=== PATIENT | male | born 1965 | race Caucasian/White ===

== ENCOUNTER → 2018-10-09 | Outpatient (CLI) | payer BC ==
[~2018-10-09] MED LIST: None per pt
[2018-10-09 11:02] LABS: BASOPHILS # (AUTO) 0.13 x10^3/uL (0-0.1); BASOPHILS % (AUTO) 1 % (0-1); EOSINOPHILS # (AUTO) 0.07 x10^3/uL (0-0.4); EOSINOPHILS % (AUTO) 1 % (1-7); LYMPHOCYTES # (AUTO) 3.77 x10^3/uL (1-3.4); LYMPHOCYTES % (AUTO) 32 % (22-44); MD NO; MEAN CORPUSCULAR HEMOGLOBIN 29.7 pg (27.5-34.5); MEAN CORPUSCULAR HGB CONC 34.2 g/dL (33.2-36.2); MEAN CORPUSCULAR VOLUME 86.8 fL (81-97); MEAN PLATELET VOLUME 10.9 fL (7.4-10.4); MONOCYTES # (AUTO) 0.38 x10^3/uL (0.2-0.8); MONOCYTES % (AUTO) 3 % (2-9); NEUTROPHILS # (AUTO) 7.59 x10^3/uL (1.8-6.8); NEUTROPHILS % (AUTO) 64 % (42-75); PLATELET COUNT 148 x10^3/uL (130-400); RED BLOOD COUNT 6.22 x10^6/uL (4.38-5.82); RED CELL DISTRIBUTION WIDTH 14.5 % (9.4-14.8)
[2018-10-09 11:15] LABS: INTERNATIONAL NORMALIZED RATIO 0.97 (0.93-1.1); PROTHROMBIN TIME 10.2 Seconds (9.6-11.5)
[2018-10-09 11:18] LABS: ANION GAP 5 mmol/L (5-15); CALCIUM 9.6 mg/dL (8.5-10.1); CHLORIDE 109 mmol/L (98-107)
[2018-10-09 11:19] LABS: CREATININE 1.08 mg/dL (0.7-1.3)
== END | disposition home or self-care (01) ==
LOC: STAR 10:05
PROVIDERS: ATTEND Neurological Surgery
DX: Z01.818 Encounter for other preprocedural examination (principal); M47.27 Other spondylosis with radiculopathy, lumbosacral region
CPT/HCPCS: 36415; 80048; 85025; 85610; 85730

== ENCOUNTER 2018-10-22 06:41 | Day surgery (SDC) | payer BC ==
[~2018-10-22] VITALS: Ht 172.7 cm; Wt 94.2 kg
[2018-10-22] MEDS ORDERED: BACITRACIN 50,000 UNIT ONE (06:57)
[2018-10-22] MEDS ORDERED: BUPIVACAINE/PF-EPI 0.5% 1:200K ONE (06:57)
[2018-10-22] MEDS ORDERED: THROMBIN 5,000 UNIT VIAL TP ONE (06:57)
[2018-10-22] MEDS ORDERED: GABAPENTIN 300 MG CAPSULE PO ONE (07:00)
[2018-10-22] MEDS ORDERED: ACETAMINOPHEN 500 MG TABLET PO ONE (07:00)
[2018-10-22] MEDS ORDERED: LACTATED RINGERS 1,000 ML IV SCH (07:41)
[2018-10-22] MEDS ORDERED: MIDAZOLAM 1 MG/ML, 2ML ONE (10:18)
[2018-10-22] MEDS ORDERED: FENTANYL PF 250 MCG/5ML ONE (10:18)
[2018-10-22] MEDS ORDERED: ROCURONIUM 10MG/ML,5ML ONE (10:21)
[2018-10-22] MEDS ORDERED: CEFAZOLIN 1,000 MG ONE (10:21)
[2018-10-22] MEDS ORDERED: NEOSTIGMINE 1 MG/ML, 10ML ONE (10:21)
[2018-10-22] MEDS ORDERED: GLYCOPYRROLATE 0.2MG/1ML, 5ML ONE (10:21)
[2018-10-22] MEDS ORDERED: PROPOFOL 10 MG/ML, 20ML ONE (10:21)
[2018-10-22] MEDS ORDERED: methylPREDNISolone *ACETATE* 40 MG/ML ONE (10:43)
[2018-10-22] MEDS ORDERED: CLINDAMYCIN 150 MG/ML, 6ML ONE (10:50)
[2018-10-22] MEDS ORDERED: PROMETHAZINE 25 MG/ML, 1ML IV PRN (11:00)
[2018-10-22] MEDS ORDERED: FENTANYL PF 100 MCG/2ML IV PRN (11:00)
[2018-10-22] MEDS ORDERED: PROMETHAZINE 25 MG/ML, 1ML IM PRN ×2 (11:00)
[2018-10-22] MEDS ORDERED: LABETALOL 5MG/ML, 20ML IV PRN (11:00)
[2018-10-22] MEDS ORDERED: PROMETHAZINE 12.5 MG SUPP PR PRN (11:00)
[2018-10-22] MEDS ORDERED: MEPERIDINE/PF 25MG/0.5ML IVPush PRN (11:00)
[2018-10-22] MEDS ORDERED: MORPHINE SULFATE 4 MG/ML, 1ML IVPush PRN (11:00)
[2018-10-22] MEDS ORDERED: ONDANSETRON ODT 8 MG PO PRN (11:00)
[2018-10-22] MEDS ORDERED: PROMETHAZINE 25 MG SUPP PR PRN (11:00)
[2018-10-22] MEDS ORDERED: ONDANSETRON 2MG/ML, 2ML IV PRN (11:00)
[2018-10-22] MEDS ORDERED: hydrALAzine 20 MG/ML, 1ML IV PRN (11:00)
[2018-10-22] MEDS ORDERED: OXYcodone 5 MG/5 ML ORAL.SOL UDC PO PRN (11:00)
[2018-10-22] MEDS ORDERED: HYDROmorphone 2 MG/ML, 1ML IVPush PRN (11:00)
== END 2018-10-22 14:25 | disposition home or self-care (01) ==
LOC: OUT 06:41
PROVIDERS: ATTEND Neurological Surgery
DX: M51.17 Intervertebral disc disorders with radiculopathy, lumbosacral region (principal); M47.27 Other spondylosis with radiculopathy, lumbosacral region; J45.909 Unspecified asthma, uncomplicated; G43.909 Migraine, unspecified, not intractable, without status migrainosus; G47.30 Sleep apnea, unspecified; G47.00 Insomnia, unspecified; F17.210 Nicotine dependence, cigarettes, uncomplicated; Z79.899 Other long term (current) drug therapy; Z88.0 Allergy status to penicillin; Z88.8 Allergy status to other drugs, medicaments and biological substances; Z98.1 Arthrodesis status; Z98.890 Other specified postprocedural states; Z83.3 Family history of diabetes mellitus; Z82.3 Family history of stroke; Z82.49 Family history of ischemic heart disease and other diseases of the circulatory system
CPT/HCPCS: 36415; 63030; 72100; 86850; 86900; J0690; J1030; J2250; J2704; J2710; J3010; J7120

== ENCOUNTER → 2018-11-12 | Outpatient (CLI) | payer BC ==
[~2018-11-12] MED LIST changes: +CYCL-259 PO; +GABA-826 PO; +OXYC1TAB7 PO
[2018-11-12 09:58] LABS: BASOPHILS # (AUTO) 0.04 x10^3/uL (0-0.1); BASOPHILS % (AUTO) 0 % (0-1); EOSINOPHILS # (AUTO) 0.14 x10^3/uL (0-0.4); EOSINOPHILS % (AUTO) 1 % (1-7); LYMPHOCYTES # (AUTO) 4.06 x10^3/uL (1-3.4); LYMPHOCYTES % (AUTO) 34 % (22-44); MD NO; MEAN CORPUSCULAR HEMOGLOBIN 28.7 pg (27.5-34.5); MEAN CORPUSCULAR HGB CONC 32.7 g/dL (33.2-36.2); MEAN CORPUSCULAR VOLUME 87.9 fL (81-97); MEAN PLATELET VOLUME 10.6 fL (7.4-10.4); MONOCYTES # (AUTO) 0.52 x10^3/uL (0.2-0.8); MONOCYTES % (AUTO) 4 % (2-9); NEUTROPHILS # (AUTO) 7.22 x10^3/uL (1.8-6.8); NEUTROPHILS % (AUTO) 60 % (42-75); PLATELET COUNT 159 x10^3/uL (130-400); RED BLOOD COUNT 6.27 x10^6/uL (4.38-5.82); RED CELL DISTRIBUTION WIDTH 14.2 % (9.4-14.8)
[2018-11-12 10:01] LABS: ANION GAP 8 mmol/L (5-15); CALCIUM 9.6 mg/dL (8.5-10.1); CHLORIDE 104 mmol/L (98-107); CREATININE 1.11 mg/dL (0.7-1.3)
== END | disposition home or self-care (01) ==
LOC: STAR 08:54
PROVIDERS: ATTEND Neurological Surgery
DX: Z01.818 Encounter for other preprocedural examination (principal); M47.27 Other spondylosis with radiculopathy, lumbosacral region
CPT/HCPCS: 36415; 80048; 85025

== ENCOUNTER 2019-06-20 09:50 | Inpatient (IN) | payer BC ==
[~2019-06-20] VITALS: Ht 172.7 cm; Wt 95.2 kg
--- NOTE | 2019-06-20 10:30 | NUR ---
THIS IS A 53 YO MALE WHO PRESENTS TO THE ER C/O NAUSEA AND ABD PAIN X 1 WEEK. PT REPORTS A SMALL LOOSE BM THIS MORNING, BUT REPORTS HE HAS NOT EATEN MUCH OVER THE LAST WEEK. PT TENDER UPON PALP TO LLQ AND EPIGASTRIC REGION. PT AO X 4. SKIN PWD. RESP EVEN AND UNLABORED. PT ON CONT BP AND O2 MONITORS. FAMILY AT BEDSIDE. CALL LIGHT WITHIN REACH. WILL CONT TO MONITOR PT.
[2019-06-20 10:57] LABS: BASOPHILS # (AUTO) 0.18 x10^3/uL (0-0.1); BASOPHILS % (AUTO) 1 % (0-1); EOSINOPHILS # (AUTO) 0.16 x10^3/uL (0-0.4); EOSINOPHILS % (AUTO) 1 % (1-7); LYMPHOCYTES # (AUTO) 2.29 x10^3/uL (1-3.4); LYMPHOCYTES % (AUTO) 15 % (22-44); MD NO; MEAN CORPUSCULAR HEMOGLOBIN 28.9 pg (27.5-34.5); MEAN CORPUSCULAR HGB CONC 33.4 g/dL (33.2-36.2); MEAN CORPUSCULAR VOLUME 86.7 fL (81-97); MEAN PLATELET VOLUME 9.1 fL (7.4-10.4); MONOCYTES # (AUTO) 1.09 x10^3/uL (0.2-0.8); MONOCYTES % (AUTO) 7 % (2-9); NEUTROPHILS # (AUTO) 11.58 x10^3/uL (1.8-6.8); NEUTROPHILS % (AUTO) 76 % (42-75); PLATELET COUNT 276 x10^3/uL (130-400); RED BLOOD COUNT 5.21 x10^6/uL (4.38-5.82); RED CELL DISTRIBUTION WIDTH 14.4 % (9.4-14.8)
[2019-06-20] MEDS ORDERED: HYDROmorphone 1 MG/ML, 1ML INJ ONE (10:57)
[2019-06-20] MEDS ORDERED: ONDANSETRON 2MG/ML, 2ML ONE (10:57)
[2019-06-20] MEDS ORDERED: HYDROmorphone 2 MG/ML, 1ML IVPush PRN (11:00)
[2019-06-20] MEDS ORDERED: SODIUM CHLORIDE FLUSH 10ML SYR IVF ONE (11:00)
[2019-06-20] MEDS ORDERED: ONDANSETRON 2MG/ML, 2ML IVPush ONE (11:00)
[2019-06-20] MEDS ORDERED: SODIUM CHLORIDE 0.9% 1,000ML IVBOLUS ONE (11:00)
[2019-06-20 11:09] LABS: ALBUMIN 2.7 g/dL (3.4-5.0); ANION GAP 11 mmol/L (5-15); CALCIUM 8.7 mg/dL (8.5-10.1); CHLORIDE 103 mmol/L (98-107)
[2019-06-20 11:15] LABS: ALANINE AMINOTRANSFERASE 18 U/L (12-78); ALKALINE PHOSPHATASE 92 U/L (45-117); BILIRUBIN,TOTAL 1.5 mg/dL (0.2-1.0); CREATININE 1.13 mg/dL (0.7-1.3); TOTAL PROTEIN 7.1 g/dL (6.4-8.2); TROPONIN I < 0.015 ng/mL (0.000-0.045)
--- NOTE | 2019-06-20 11:18 | NUR ---
PT MEDICATED ORDERED FOR NAUSEA AND EPIGASTRIC AND LLQ ABD PAIN RATED AT 8/10 AND DESCRIBED SHARP/STABBING. PT REPORTS PAIN IS NOW 3/10 AND TOLERABLE. PT APPEARS TO BE RESTING COMFORTABLY ON GURNEY. NAD NOTED AT THIS TIME. FAMILY AT BEDSIDE. PT ON CONT BP AND O2 MONITORS. CALL LIGHT WITHIN REACH. WILL CONT TO MONITOR PT.
--- NOTE | 2019-06-20 12:00 | NUR ---
REPORT RECEIVED FROM HELEN SEN. ASSUMING CARE AT THIS TIME.
--- NOTE | 2019-06-20 12:00 | NUR ---
REPORT TO FRANCY MATHEWS WHO ASSUMED CARE OF PT.
[2019-06-20 12:18] LABS: MICROSCOPIC INDICATED
[2019-06-20 12:32] LABS: CULTURE INDICATED? NO
--- NOTE | 2019-06-20 13:01 | NUR ---
US AT BEDSIDE.
--- NOTE | 2019-06-20 14:00 | NUR ---
ALL RESULTS ARE BACK AT THIS TIME. CHART UP FOR RECHECK.
--- NOTE | 2019-06-20 14:08 | NUR ---
MD AT BEDSIDE TO UPDATE PT ON POC.
[2019-06-20] MEDS ORDERED: SODIUM CHLORIDE 0.9% 1,000 ML IV ONE (14:28)
[2019-06-20] MEDS ORDERED: SODIUM CHLORIDE FLUSH 10ML SYR IVF PRN (14:30)
--- NOTE | 2019-06-20 14:46 | NUR ---
HOSPITALIST AT BEDSIDE. PT RESTING COMFORTABLY ON RLAZARO. BONI. IVF RUNNING PER JUL.
[2019-06-20] MEDS ORDERED: ACETAMINOPHEN 325 MG TABLET PO PRN (15:00)
[2019-06-20] MEDS ORDERED: ONDANSETRON 2MG/ML, 2ML IVPush PRN (15:00)
[2019-06-20] MEDS ORDERED: ONDANSETRON ODT 4 MG PO PRN (15:00)
[2019-06-20] MEDS: LACTATED RINGERS 1,000 ML IV SCH (15:00)
[2019-06-20] MEDS ORDERED: ENOXAPARIN 40 MG/0.4 ML ONE (15:21)
[2019-06-20] MEDS: ENOXAPARIN 40 MG/0.4 ML SQ SCH (15:22)
--- NOTE | 2019-06-20 17:04 | NUR ---
REPORT GIVEN TO LETICIA SEN
[2019-06-20 17:33] VITALS: BP 112/70
[2019-06-20] MEDS: morphine SULFATE 10 MG/ML, 1ML IVPush PRN ×3 (17:50→22:23)
[2019-06-20 19:13] VITALS: BP 100/63
[2019-06-20 20:04] VITALS: BP 93/54
[2019-06-21] MEDS: morphine SULFATE 10 MG/ML, 1ML IVPush PRN ×6 (02:34→19:46)
[2019-06-21] MEDS: LACTATED RINGERS 1,000 ML IV SCH ×4 (02:37→23:54)
[2019-06-21 04:07] LABS: AMPHETAMINE SCREEN, URINE Negative (Negative); BARBITURATE SCREEN, URINE Negative (Negative); BENZODIAZEPINE SCREEN, URINE Negative (Negative); CANNABINOID SCREEN, URINE Negative (Negative); COCAINE SCREEN, URINE Negative (Negative); METHADONE SCREEN, URINE Negative (Negative); OPIATE SCREEN, URINE Positive (Negative)
[2019-06-21 05:07] VITALS: BP 93/60
[2019-06-21 06:17] LABS: BASOPHILS # (AUTO) 0.03 x10^3/uL (0-0.1); BASOPHILS % (AUTO) 0 % (0-1); EOSINOPHILS # (AUTO) 0.14 x10^3/uL (0-0.4); EOSINOPHILS % (AUTO) 1 % (1-7); LYMPHOCYTES # (AUTO) 2.28 x10^3/uL (1-3.4); LYMPHOCYTES % (AUTO) 20 % (22-44); MD NO; MEAN CORPUSCULAR HEMOGLOBIN 28.7 pg (27.5-34.5); MEAN PLATELET VOLUME 9.5 fL (7.4-10.4); MONOCYTES # (AUTO) 0.79 x10^3/uL (0.2-0.8); MONOCYTES % (AUTO) 7 % (2-9); NEUTROPHILS # (AUTO) 8.48 x10^3/uL (1.8-6.8); NEUTROPHILS % (AUTO) 72 % (42-75); PLATELET COUNT 218 x10^3/uL (130-400); RED BLOOD COUNT 4.57 x10^6/uL (4.38-5.82); RED CELL DISTRIBUTION WIDTH 14.5 % (9.4-14.8)
[2019-06-21 06:26] LABS: CHLORIDE 109 mmol/L (98-107)
[2019-06-21 06:37] LABS: ALANINE AMINOTRANSFERASE 16 U/L (12-78); ALBUMIN 2.3 g/dL (3.4-5.0); ALKALINE PHOSPHATASE 71 U/L (45-117); ANION GAP 8 mmol/L (5-15); BILIRUBIN,TOTAL 0.8 mg/dL (0.2-1.0); CALCIUM 8.5 mg/dL (8.5-10.1); CHOL/HDL RATIO 8.3; CHOLESTEROL, TOTAL 141 mg/dL (140-239); CREATININE 0.73 mg/dL (0.7-1.3); HDL CHOL % 12 % (26-37); HDL CHOLESTEROL (DIRECT) 17 mg/dL (40-60); LDL CHOLESTEROL,CALCULATED 99 mg/dL (54-169); LDL/HDL RATIO 5.8 (0.5-3.0); TOTAL PROTEIN 6.1 g/dL (6.4-8.2); TRIGLYCERIDES 126 mg/dL (50-200); VLDL CHOLESTEROL 25 mg/dL (0-25)
[2019-06-21 10:54] VITALS: BP 109/72
[2019-06-21 14:04] VITALS: BP 106/62
[2019-06-21] MEDS: ENOXAPARIN 40 MG/0.4 ML SQ SCH (15:30)
[2019-06-21 19:05] VITALS: BP 120/74
[2019-06-22 00:28] VITALS: BP 100/62
[2019-06-22 05:08] LABS: BASOPHILS # (AUTO) 0.11 x10^3/uL (0-0.1); BASOPHILS % (AUTO) 1 % (0-1); EOSINOPHILS # (AUTO) 0.17 x10^3/uL (0-0.4); EOSINOPHILS % (AUTO) 1 % (1-7); LYMPHOCYTES # (AUTO) 1.88 x10^3/uL (1-3.4); LYMPHOCYTES % (AUTO) 16 % (22-44); MD NO; MEAN CORPUSCULAR HEMOGLOBIN 29.1 pg (27.5-34.5); MEAN CORPUSCULAR HGB CONC 33.5 g/dL (33.2-36.2); MEAN CORPUSCULAR VOLUME 86.8 fL (81-97); MEAN PLATELET VOLUME 8.6 fL (7.4-10.4); MONOCYTES # (AUTO) 0.88 x10^3/uL (0.2-0.8); MONOCYTES % (AUTO) 7 % (2-9); NEUTROPHILS # (AUTO) 8.82 x10^3/uL (1.8-6.8); NEUTROPHILS % (AUTO) 74 % (42-75); PLATELET COUNT 266 x10^3/uL (130-400); RED CELL DISTRIBUTION WIDTH 14.6 % (9.4-14.8)
[2019-06-22 05:19] LABS: ALBUMIN 2.3 g/dL (3.4-5.0); ANION GAP 11 mmol/L (5-15); CHLORIDE 106 mmol/L (98-107)
[2019-06-22 05:23] LABS: ALANINE AMINOTRANSFERASE 23 U/L (12-78); ALKALINE PHOSPHATASE 79 U/L (45-117); CREATININE 0.69 mg/dL (0.7-1.3); TOTAL PROTEIN 5.9 g/dL (6.4-8.2)
[2019-06-22] MEDS: LACTATED RINGERS 1,000 ML IV SCH ×3 (06:43→21:40)
[2019-06-22 07:49] VITALS: BP 108/67
[2019-06-22 14:02] VITALS: BP 144/79
[2019-06-22 14:13] LABS: CLOSTRIDIUM DIFFICILE ANTIGEN NEGATIVE; CLOSTRIDIUM DIFFICILE TOXIN NEGATIVE (Negative)
[2019-06-22] MEDS: ENOXAPARIN 40 MG/0.4 ML SQ SCH (15:30)
[2019-06-22] MEDS ORDERED: LACTATED RINGERS 1,000 ML IV PRN (19:00)
[2019-06-22 19:45] VITALS: BP 123/75
[2019-06-22 19:47] LABS: BASOPHILS # (AUTO) 0.12 x10^3/uL (0-0.1); BASOPHILS % (AUTO) 1 % (0-1); EOSINOPHILS # (AUTO) 0.16 x10^3/uL (0-0.4); EOSINOPHILS % (AUTO) 1 % (1-7); LYMPHOCYTES # (AUTO) 2.13 x10^3/uL (1-3.4); LYMPHOCYTES % (AUTO) 19 % (22-44); MD NO; MEAN CORPUSCULAR HEMOGLOBIN 28.8 pg (27.5-34.5); MEAN CORPUSCULAR HGB CONC 33.4 g/dL (33.2-36.2); MEAN CORPUSCULAR VOLUME 86.2 fL (81-97); MONOCYTES # (AUTO) 0.79 x10^3/uL (0.2-0.8); MONOCYTES % (AUTO) 7 % (2-9); NEUTROPHILS # (AUTO) 8.32 x10^3/uL (1.8-6.8); NEUTROPHILS % (AUTO) 72 % (42-75); PLATELET COUNT 272 x10^3/uL (130-400); RED BLOOD COUNT 4.51 x10^6/uL (4.38-5.82); RED CELL DISTRIBUTION WIDTH 14.2 % (9.4-14.8)
[2019-06-23 02:40] VITALS: BP 130/82
[2019-06-23 05:49] LABS: INTERNATIONAL NORMALIZED RATIO 1.03 (0.93-1.1); PROTHROMBIN TIME 10.9 Seconds (9.6-11.5)
[2019-06-23 05:52] LABS: ALBUMIN 2.5 g/dL (3.4-5.0); ANION GAP 7 mmol/L (5-15); CALCIUM 8.7 mg/dL (8.5-10.1); CHLORIDE 108 mmol/L (98-107)
[2019-06-23 05:56] LABS: ALANINE AMINOTRANSFERASE 45 U/L (12-78); ALKALINE PHOSPHATASE 93 U/L (45-117); BILIRUBIN,TOTAL 0.8 mg/dL (0.2-1.0); CREATININE 0.72 mg/dL (0.7-1.3); TOTAL PROTEIN 6.6 g/dL (6.4-8.2)
[2019-06-23 09:02] VITALS: BP 121/78
[2019-06-23] MEDS: LACTATED RINGERS 1,000 ML IV SCH (10:53)
[2019-06-23] MEDS: MORPHINE SULFATE 4 MG/ML, 1ML IV PRN (11:10)
[2019-06-23 14:21] VITALS: BP 146/67
[2019-06-23] MEDS ORDERED: MIDAZOLAM 1 MG/ML, 2ML ONE (14:54)
[2019-06-23] MEDS ORDERED: PROPOFOL 50 ML ONE (14:54)
[2019-06-23] MEDS ORDERED: EPINEPHRINE 1 MG/ML, 1ML ONE (15:02)
[2019-06-23] MEDS ORDERED: BUPIVACAINE/PF 0.5% ONE (15:02)
[2019-06-23] MEDS ORDERED: FENTANYL PF 250 MCG/5ML ONE (15:31)
[2019-06-23] MEDS ORDERED: CEFAZOLIN 1,000 MG ONE ×2 (15:43→15:45)
[2019-06-23] MEDS ORDERED: ROCURONIUM 10MG/ML,5ML ONE (15:45)
[2019-06-23] MEDS ORDERED: SUCCINYLCHOLINE 20 MG/ML, 10ML ONE (15:45)
[2019-06-23] MEDS ORDERED: ONDANSETRON 2MG/ML, 2ML ONE (15:45)
[2019-06-23] MEDS ORDERED: PROPOFOL 10 MG/ML, 20ML ONE (15:45)
[2019-06-23] MEDS ORDERED: DEXAMETHASONE 4 MG/ML, 1ML ONE (15:45)
[2019-06-23] MEDS ORDERED: EPHEDRINE 50 MG/ML, 1ML IM PRN (16:00)
[2019-06-23] MEDS ORDERED: PROMETHAZINE 25 MG/ML, 1ML IV PRN (16:00)
[2019-06-23] MEDS ORDERED: EPHEDRINE 50 MG/ML, 1ML IVPush PRN (16:00)
[2019-06-23] MEDS ORDERED: ACETAMINOPHEN 325 MG TABLET PO PRN (16:00)
[2019-06-23] MEDS ORDERED: ONDANSETRON 2MG/ML, 2ML IV PRN (16:00)
[2019-06-23] MEDS ORDERED: MEPERIDINE/PF 25MG/ML,1ML IVPush PRN (16:00)
[2019-06-23] MEDS ORDERED: MORPHINE SULFATE 4 MG/ML, 1ML IVPush PRN (16:00)
[2019-06-23] MEDS ORDERED: hydrALAzine 20 MG/ML, 1ML IV PRN (16:00)
[2019-06-23] MEDS ORDERED: METOPROLOL 1 MG/ML, 5ML IV PRN (16:00)
[2019-06-23] MEDS ORDERED: DIAZEPAM 5 MG/ML, 2ML IVPush PRN (16:00)
[2019-06-23] MEDS ORDERED: DIPHENHYDRAMINE 50 MG/ML, 1ML IVPush PRN (16:00)
[2019-06-23] MEDS ORDERED: ONDANSETRON ODT 8 MG PO PRN (16:00)
[2019-06-23] MEDS ORDERED: FENTANYL PF 100 MCG/2ML IV PRN (16:00)
[2019-06-23] MEDS ORDERED: OXYcodone 5 MG/5 ML ORAL.SOL UDC PO PRN (16:00)
[2019-06-23] MEDS ORDERED: OXYcodone 5 MG/5 ML ORAL.SOL UDC ONE (17:42)
[2019-06-23] MEDS ORDERED: MEPERIDINE/PF 25MG/ML,1ML ONE (17:44)
[2019-06-23 18:31] VITALS: BP 122/76
[2019-06-24] MEDS: LACTATED RINGERS 1,000 ML IV SCH ×2 (01:12→13:30)
[2019-06-24] MEDS: MORPHINE SULFATE 4 MG/ML, 1ML IV PRN ×2 (01:18→11:36)
[2019-06-24 01:38] VITALS: BP 127/72
[2019-06-24 04:55] LABS: BASOPHILS # (AUTO) 0.04 x10^3/uL (0-0.1); BASOPHILS % (AUTO) 0 % (0-1); EOSINOPHILS # (AUTO) 0.13 x10^3/uL (0-0.4); EOSINOPHILS % (AUTO) 1 % (1-7); LYMPHOCYTES # (AUTO) 1.84 x10^3/uL (1-3.4); LYMPHOCYTES % (AUTO) 13 % (22-44); MD NO; MEAN CORPUSCULAR HEMOGLOBIN 28.8 pg (27.5-34.5); MEAN CORPUSCULAR VOLUME 87.4 fL (81-97); MEAN PLATELET VOLUME 9.6 fL (7.4-10.4); MONOCYTES # (AUTO) 0.66 x10^3/uL (0.2-0.8); MONOCYTES % (AUTO) 5 % (2-9); NEUTROPHILS # (AUTO) 11.89 x10^3/uL (1.8-6.8); NEUTROPHILS % (AUTO) 82 % (42-75); PLATELET COUNT 288 x10^3/uL (130-400); RED BLOOD COUNT 4.65 x10^6/uL (4.38-5.82); RED CELL DISTRIBUTION WIDTH 14.1 % (9.4-14.8)
[2019-06-24 04:58] LABS: ALBUMIN 2.3 g/dL (3.4-5.0); ANION GAP 6 mmol/L (5-15); CALCIUM 8.5 mg/dL (8.5-10.1); CHLORIDE 106 mmol/L (98-107)
[2019-06-24 05:02] LABS: ALANINE AMINOTRANSFERASE 58 U/L (12-78); ALKALINE PHOSPHATASE 87 U/L (45-117); BILIRUBIN,TOTAL 0.5 mg/dL (0.2-1.0); CREATININE 0.73 mg/dL (0.7-1.3)
[2019-06-24 09:02] VITALS: BP 106/67
[2019-06-24] MEDS ORDERED: OXYC5CAP2 PO (11:59)
[2019-06-24] MEDS ORDERED: FLU VACC QS2019-20 36MOS UP/PF 0.5 ML IM-VACC ONE (13:00)
== END 2019-06-24 14:45 | disposition home or self-care (01) | DRG 417 ==
LOC: ED 13:20 → EDIP 14:45 → 3N 17:22 → DCLOUNGE 06-24 14:33
PROVIDERS: ADMIT Family Medicine; ATTEND Family Medicine
PROC: 0FT44ZZ Resection of Gallbladder, Percutaneous Endoscopic Approach (ICD-10-PCS; principal; 2019-06-23 16:00)
DX: K80.12 Calculus of gallbladder with acute and chronic cholecystitis without obstruction (principal); K85.10 Biliary acute pancreatitis without necrosis or infection; F17.200 Nicotine dependence, unspecified, uncomplicated; G89.29 Other chronic pain; M54.9 Dorsalgia, unspecified; I11.0 Hypertensive heart disease with heart failure; Z82.49 Family history of ischemic heart disease and other diseases of the circulatory system; Z83.3 Family history of diabetes mellitus; Z79.891 Long term (current) use of opiate analgesic; Z88.0 Allergy status to penicillin; Z88.8 Allergy status to other drugs, medicaments and biological substances
CPT/HCPCS: 36415; 96361; 96374; 96375; 99285; S0020; 76700; 80053; 80061; 80307; 81001; 83605; 83690; 84484; 85025; 85610; 85730; 87324; 88304; 90686; 93005; G0378; J0171; J0690; J1100; J1170; J1650; J2250; J2405; J2704; J3010; J0330; J2175; J2270; J7030; J7120

== ENCOUNTER 2019-10-10 11:48 | Inpatient (IN) | payer BC ==
[~2019-10-10] VITALS: Ht 172.7 cm; Wt 78.9 kg
[~2019-10-10 11:48] MED LIST changes: +OXYC5CAP2 PO
[2019-10-10] MEDS ORDERED: SODIUM CHLORIDE FLUSH 10ML SYR IVF ONE ×2 (12:00→14:30)
[2019-10-10 12:28] LABS: BASOPHILS # (AUTO) 0.08 x10^3/uL (0-0.1); BASOPHILS % (AUTO) 1 % (0-1); EOSINOPHILS # (AUTO) 0.35 x10^3/uL (0-0.4); EOSINOPHILS % (AUTO) 2 % (1-7); LYMPHOCYTES # (AUTO) 3.45 x10^3/uL (1-3.4); LYMPHOCYTES % (AUTO) 24 % (22-44); MD NO; MEAN CORPUSCULAR HEMOGLOBIN 28.3 pg (27.5-34.5); MEAN CORPUSCULAR HGB CONC 32.8 g/dL (33.2-36.2); MEAN CORPUSCULAR VOLUME 86.4 fL (81-97); MEAN PLATELET VOLUME 9.1 fL (7.4-10.4); MONOCYTES # (AUTO) 0.73 x10^3/uL (0.2-0.8); MONOCYTES % (AUTO) 5 % (2-9); NEUTROPHILS # (AUTO) 9.79 x10^3/uL (1.8-6.8); NEUTROPHILS % (AUTO) 68 % (42-75); PLATELET COUNT 269 x10^3/uL (130-400); RED BLOOD COUNT 5.71 x10^6/uL (4.38-5.82); RED CELL DISTRIBUTION WIDTH 15.3 % (9.4-14.8)
--- NOTE | 2019-10-10 12:28 | NUR ---
Pt A/O X4, c/o swollen R leg since Friday. Pt states pain worse in posterior calf, difficulty with ambulating. Leg appears red, swollen, and warm. CMS intact. Denies recent travel, or sitting for long periods. Denies HX of blood clots.
[2019-10-10 12:35] LABS: INTERNATIONAL NORMALIZED RATIO 0.91 (0.93-1.1); PROTHROMBIN TIME 9.6 Seconds (9.6-11.5)
[2019-10-10 12:37] LABS: ALBUMIN 3.8 g/dL (3.4-5.0); ANION GAP 7 mmol/L (5-15); CALCIUM 9.5 mg/dL (8.5-10.1); CHLORIDE 109 mmol/L (98-107); CREATININE 0.98 mg/dL (0.7-1.3)
[2019-10-10] MEDS ORDERED: METO50TA4 PO (12:58)
--- NOTE | 2019-10-10 13:00 | NUR ---
US at bedside
--- NOTE | 2019-10-10 13:44 | NUR ---
IMAGING CALLED REGARDING DELAY IN RESULTS. WAITING FOR IMAGES TO SEND.
--- NOTE | 2019-10-10 14:53 | NUR ---
PT TO IMAGING VIA [employer] AT THIS TIME.
[2019-10-10] MEDS ORDERED: OMNIPAQUE 350 MG/ML, 75ML BOTTLE ONE (15:02)
--- NOTE | 2019-10-10 15:40 | NUR ---
REPORT TO FRANCY MATHEWS WHO ASSUMED CARE OF PT. KEN CRAMER AT BEDSIDE FOR RECHECK/EXPLANATION OF POC. PT AO X 4. SKIN PWD, APART FROM RLE WHICH IS ERYTHEMATOUS. RESP EVEN AND UNLABORED. CALL LIGHT WITHIN REACH. WILL CONT TO MONITOR PT.
[2019-10-10] MEDS ORDERED: HEPARIN 5,000 UNITS/ML, 1ML ONE (15:48)
[2019-10-10] MEDS ORDERED: HEPARIN 25,000 UNITS/250ML PMX 250 ML ONE (15:48)
[2019-10-10] MEDS ORDERED: HEPARIN 25,000 UNITS/250ML PMX 250 ML IV PRN (16:00)
[2019-10-10] MEDS ORDERED: HEPARIN 5,000 UNITS/ML, 1ML IV ONE (16:00)
--- NOTE | 2019-10-10 16:09 | NUR ---
Verified heparin bolus and gtt with primary RN.
--- NOTE | 2019-10-10 16:09 | NUR ---
HEPARIN STARTED PER JUL AND VERIFIED WITH DAYDAY SEN. PT RESTING COMFORTABLY ON RLAZARO. BONI. HOSPITALIST AT BEDSIDE.
[2019-10-10] MEDS ORDERED: ONDANSETRON ODT 4 MG PO PRN (16:30)
[2019-10-10] MEDS ORDERED: NICOTINE 14MG/24 HR PATCH.TD24 TD SCH (16:30)
[2019-10-10] MEDS ORDERED: ACETAMINOPHEN 325 MG TABLET PO PRN (16:30)
[2019-10-10] MEDS ORDERED: ONDANSETRON 2MG/ML, 2ML IVPush PRN (16:30)
[2019-10-10 17:54] VITALS: BP 119/74
[2019-10-10] MEDS: SODIUM CHLORIDE 0.9% 1,000 ML IV SCH (18:33)
[2019-10-10 19:22] VITALS: BP 107/71
[2019-10-10] MEDS: HEPARIN 5,000 UNITS/ML, 1ML IV PRN (22:53)
[2019-10-11 00:17] VITALS: BP 109/71
[2019-10-11 05:54] LABS: ANION GAP 7 mmol/L (5-15); CALCIUM 8.4 mg/dL (8.5-10.1); CHLORIDE 111 mmol/L (98-107); CREATININE 0.76 mg/dL (0.7-1.3)
[2019-10-11 05:56] LABS: BASOPHILS # (AUTO) 0.07 x10^3/uL (0-0.1); BASOPHILS % (AUTO) 1 % (0-1); EOSINOPHILS # (AUTO) 0.43 x10^3/uL (0-0.4); EOSINOPHILS % (AUTO) 4 % (1-7); LYMPHOCYTES # (AUTO) 3.32 x10^3/uL (1-3.4); LYMPHOCYTES % (AUTO) 29 % (22-44); MD NO; MEAN CORPUSCULAR HEMOGLOBIN 28.9 pg (27.5-34.5); MEAN CORPUSCULAR HGB CONC 33.7 g/dL (33.2-36.2); MEAN CORPUSCULAR VOLUME 85.7 fL (81-97); MEAN PLATELET VOLUME 8.7 fL (7.4-10.4); MONOCYTES # (AUTO) 0.53 x10^3/uL (0.2-0.8); MONOCYTES % (AUTO) 5 % (2-9); NEUTROPHILS # (AUTO) 7.27 x10^3/uL (1.8-6.8); NEUTROPHILS % (AUTO) 63 % (42-75); PLATELET COUNT 233 x10^3/uL (130-400); RED BLOOD COUNT 4.99 x10^6/uL (4.38-5.82); RED CELL DISTRIBUTION WIDTH 15.3 % (9.4-14.8)
[2019-10-11] MEDS: HEPARIN 5,000 UNITS/ML, 1ML IV PRN (06:00)
[2019-10-11 07:03] VITALS: BP 107/70
[2019-10-11] MEDS: SODIUM CHLORIDE 0.9% 1,000 ML IV SCH (07:40)
[2019-10-11] MEDS ORDERED: APIXABAN 5 MG TABLET PO SCH (11:00)
[2019-10-11 12:41] VITALS: BP 110/70
[2019-10-11] MEDS ORDERED: APIX5TAB PO (13:02)
[2019-10-11] MEDS ORDERED: NICO-486 TD (13:02)
== END 2019-10-11 16:25 | disposition home or self-care (01) | DRG 299 ==
LOC: ED 11:58 → EDIP 16:43 → 4WST 17:54
PROVIDERS: ADMIT Internal Medicine; ATTEND Internal Medicine
DX: I82.411 Acute embolism and thrombosis of right femoral vein (principal); I26.99 Other pulmonary embolism without acute cor pulmonale; M54.9 Dorsalgia, unspecified; F17.210 Nicotine dependence, cigarettes, uncomplicated; G89.29 Other chronic pain; Z82.49 Family history of ischemic heart disease and other diseases of the circulatory system; Z82.5 Family history of asthma and other chronic lower respiratory diseases; Z83.3 Family history of diabetes mellitus; Z90.49 Acquired absence of other specified parts of digestive tract; Z90.89 Acquired absence of other organs; Z88.0 Allergy status to penicillin; Z88.1 Allergy status to other antibiotic agents
CPT/HCPCS: 36415; 71275; 80048; 82040; 83880; 84311; 85025; 85300; 85302; 85303; 85306; 85520; 85610; 85613; 85670; 85705; 85730; 85732; 93005; 99285; G0378; J1644; Q9967; J7030

== ENCOUNTER 2020-01-23 09:24 | Inpatient (IN) | payer BC ==
[~2020-01-23] VITALS: Ht 172.7 cm; Wt 81.6 kg
[~2020-01-23 09:24] MED LIST changes: +APIX5TAB PO; +METO50TA4 PO; +NICO-486 TD
[2020-01-23] MEDS ORDERED: SODIUM CHLORIDE FLUSH 10ML SYR IVF ONE (10:00)
[2020-01-23] MEDS ORDERED: SODIUM CHLORIDE 0.9% 1,000ML IVBOLUS ONE (10:00)
[2020-01-23] MEDS ORDERED: ONDANSETRON 2MG/ML, 2ML IVPush ONE (10:00)
[2020-01-23] MEDS ORDERED: FAMOTIDINE 20 MG/2 ML IV ONE (10:00)
[2020-01-23] MEDS ORDERED: FAMOTIDINE 20 MG/2 ML ONE (10:27)
[2020-01-23] MEDS ORDERED: ONDANSETRON 2MG/ML, 2ML ONE (10:27)
[2020-01-23] MEDS ORDERED: MORPHINE SULFATE 4 MG/ML, 1ML ONE (10:27)
[2020-01-23] MEDS: MORPHINE SULFATE 4 MG/ML, 1ML IVPush PRN ×2 (10:43→19:22)
[2020-01-23 10:49] LABS: ALANINE AMINOTRANSFERASE 23 U/L (12-78); ANION GAP 11 mmol/L (5-15); CALCIUM 9.6 mg/dL (8.5-10.1); CHLORIDE 106 mmol/L (98-107); CREATININE 0.95 mg/dL (0.7-1.3)
[2020-01-23 10:50] LABS: ALKALINE PHOSPHATASE 237 U/L (45-117); BILIRUBIN,TOTAL 1.5 mg/dL (0.2-1.0); TOTAL PROTEIN 7.4 g/dL (6.4-8.2)
--- NOTE | 2020-01-23 10:52 | NUR ---
PT IN [facility]OSPITAL GOWN. IV STARTED, PT MEDICATED PER EMAR. PT C/O OF FEELING COLD. HEATER HOSE PLACED ON PT TO HELP WARM HIM UP. PT AWARE OF CURRENT PLAN. AWAITING CT. LABS HAVE BEEN DRAWN. VSS AT THIS TIME.
[2020-01-23 11:09] LABS: BASOPHILS # (AUTO) 0.05 x10^3/uL (0-0.1); BASOPHILS % (AUTO) 0 % (0-1); EOSINOPHILS # (AUTO) 0.07 x10^3/uL (0-0.4); EOSINOPHILS % (AUTO) 1 % (1-7); LYMPHOCYTES # (AUTO) 2.49 x10^3/uL (1-3.4); LYMPHOCYTES % (AUTO) 19 % (22-44); MD SCAN; MEAN CORPUSCULAR HEMOGLOBIN 27.4 pg (27.5-34.5); MEAN CORPUSCULAR HGB CONC 32.5 g/dL (33.2-36.2); MEAN CORPUSCULAR VOLUME 84.5 fL (81-97); MEAN PLATELET VOLUME 12.3 fL (7.4-10.4); MONOCYTES # (AUTO) 0.92 x10^3/uL (0.2-0.8); MONOCYTES % (AUTO) 7 % (2-9); NEUTROPHILS # (AUTO) 9.53 x10^3/uL (1.8-6.8); NEUTROPHILS % (AUTO) 73 % (42-75); PLATELET COUNT 52 x10^3/uL (130-400); RED CELL DISTRIBUTION WIDTH 14.6 % (9.4-14.8)
--- NOTE | 2020-01-23 12:03 | NUR ---
PT ABLE TO PROVIDE URINE SAMPLE. URINE WALKED TO LAB. PT TO CT AT THIS TIME.
[2020-01-23] MEDS ORDERED: OMNIPAQUE 350 MG/ML, 150 ML BOTTLE ONE (12:08)
[2020-01-23 12:10] LABS: MICROSCOPIC AUTO
[2020-01-23] MEDS ORDERED: OXYC-307 PO (12:55)
[2020-01-23] MEDS ORDERED: APIX5TAB PO (12:55)
--- NOTE | 2020-01-23 13:07 | NUR ---
PATIENT TEARFUL IN ROOM TALKING WITH FAMILY. NO REQUESTS AT THIS TIME. UPDATED PT'S VITALS AND MED LIST.
--- NOTE | 2020-01-23 13:32 | NUR ---
REPORT TO LESLIE SEN.
[2020-01-23] MEDS ORDERED: hydrALAzine 20 MG/ML, 1ML IVPush PRN (14:00)
[2020-01-23] MEDS ORDERED: ONDANSETRON 2MG/ML, 2ML IVPush PRN (14:00)
[2020-01-23] MEDS ORDERED: HYDROcodone/APAP 5/325 TABLET PO PRN (14:00)
[2020-01-23] MEDS ORDERED: LABETALOL 5MG/ML, 20ML IVPush PRN (14:00)
[2020-01-23 14:13] VITALS: BP 111/78
[2020-01-23 14:20] LABS: INTERNATIONAL NORMALIZED RATIO 1.45 (0.93-1.1)
[2020-01-23] MEDS ORDERED: HEPARIN 5,000 UNITS/ML, 1ML IV ONE (14:30)
[2020-01-23] MEDS ORDERED: TETR-17 PO (14:43)
[2020-01-23] MEDS ORDERED: RIVA20TA PO (14:43)
[2020-01-23] MEDS: morphine SULFATE 10 MG/ML, 1ML IVPush PRN (15:12)
[2020-01-23] MEDS: SODIUM CHLORIDE 0.9% 1,000 ML IV SCH (15:35)
[2020-01-23] MEDS ORDERED: OMEP20CA20 PO (15:56)
[2020-01-23] MEDS ORDERED: METR250T18 PO (15:56)
[2020-01-23] MEDS ORDERED: OMNIPAQUE 350 MG/ML, 75ML BOTTLE ONE (17:07)
[2020-01-23 18:47] VITALS: BP 120/76
[2020-01-23] MEDS: HEPARIN 25,000 UNITS/250ML PMX 250 ML IV PRN (19:21)
[2020-01-24] MEDS: morphine SULFATE 10 MG/ML, 1ML IVPush PRN ×6 (00:31→21:27)
[2020-01-24 02:35] LABS: ALANINE AMINOTRANSFERASE 19 U/L (12-78); ALBUMIN 3.4 g/dL (3.4-5.0); ANION GAP 11 mmol/L (5-15); CALCIUM 8.8 mg/dL (8.5-10.1); CHLORIDE 106 mmol/L (98-107); CREATININE 0.79 mg/dL (0.7-1.3)
[2020-01-24 02:37] LABS: ALKALINE PHOSPHATASE 189 U/L (45-117); BILIRUBIN,TOTAL 0.9 mg/dL (0.2-1.0); TOTAL PROTEIN 6.2 g/dL (6.4-8.2)
[2020-01-24 02:57] LABS: BASOPHILS # (AUTO) 0.03 x10^3/uL (0-0.1); BASOPHILS % (AUTO) 0 % (0-1); EOSINOPHILS # (AUTO) 0.05 x10^3/uL (0-0.4); EOSINOPHILS % (AUTO) 0 % (1-7); LYMPHOCYTES # (AUTO) 2.14 x10^3/uL (1-3.4); LYMPHOCYTES % (AUTO) 19 % (22-44); MD SCAN; MEAN CORPUSCULAR HEMOGLOBIN 27.8 pg (27.5-34.5); MEAN CORPUSCULAR HGB CONC 32.8 g/dL (33.2-36.2); MEAN CORPUSCULAR VOLUME 84.6 fL (81-97); MEAN PLATELET VOLUME 12.2 fL (7.4-10.4); MONOCYTES # (AUTO) 0.74 x10^3/uL (0.2-0.8); MONOCYTES % (AUTO) 7 % (2-9); NEUTROPHILS # (AUTO) 8.33 x10^3/uL (1.8-6.8); NEUTROPHILS % (AUTO) 74 % (42-75); PLATELET COUNT 53 x10^3/uL (130-400); RED BLOOD COUNT 5.13 x10^6/uL (4.38-5.82); RED CELL DISTRIBUTION WIDTH 14.5 % (9.4-14.8)
[2020-01-24 03:03] VITALS: BP 121/67
[2020-01-24] MEDS ORDERED: MORPHINE SULFATE 4 MG/ML, 1ML ONE (04:37)
[2020-01-24] MEDS: SODIUM CHLORIDE 0.9% 1,000 ML IV SCH ×2 (06:26→16:18)
[2020-01-24 07:08] VITALS: BP 124/80
[2020-01-24] MEDS: PROMETHAZINE 25 MG/ML, 1ML IM PRN ×4 (08:11→21:28)
[2020-01-24] MEDS: HEPARIN 5,000 UNITS/ML, 1ML IV PRN ×2 (09:56→17:46)
[2020-01-24] MEDS: PANTOPRAZOLE 40 MG IV IVPush SCH ×2 (11:57→21:28)
[2020-01-24 13:13] VITALS: BP 123/77
[2020-01-24 18:53] VITALS: BP 130/79
[2020-01-24] MEDS: HEPARIN 25,000 UNITS/250ML PMX 250 ML IV PRN (19:16)
[2020-01-25 01:33] VITALS: BP 120/78
[2020-01-25] MEDS: SODIUM CHLORIDE 0.9% 1,000 ML IV SCH ×2 (01:40→14:00)
[2020-01-25 04:46] LABS: INTERNATIONAL NORMALIZED RATIO 1.12 (0.93-1.1); PROTHROMBIN TIME 11.5 Seconds (9.6-11.5)
[2020-01-25 04:48] LABS: MEAN CORPUSCULAR HEMOGLOBIN 27.8 pg (27.5-34.5); MEAN CORPUSCULAR HGB CONC 32.7 g/dL (33.2-36.2); MEAN CORPUSCULAR VOLUME 84.9 fL (81-97); PLATELET COUNT 57 x10^3/uL (130-400); RED CELL DISTRIBUTION WIDTH 14.6 % (9.4-14.8)
[2020-01-25 04:55] LABS: ALANINE AMINOTRANSFERASE 20 U/L (12-78); ALBUMIN 3.2 g/dL (3.4-5.0); ANION GAP 9 mmol/L (5-15); CALCIUM 8.8 mg/dL (8.5-10.1); CHLORIDE 109 mmol/L (98-107); CREATININE 0.73 mg/dL (0.7-1.3)
[2020-01-25 04:57] LABS: ALKALINE PHOSPHATASE 164 U/L (45-117); BILIRUBIN,TOTAL 0.6 mg/dL (0.2-1.0); TOTAL PROTEIN 5.7 g/dL (6.4-8.2)
[2020-01-25 05:13] LABS: BASOPHILS # (AUTO) 0.03 x10^3/uL (0-0.1); BASOPHILS % (AUTO) 0 % (0-1); EOSINOPHILS # (AUTO) 0.07 x10^3/uL (0-0.4); EOSINOPHILS % (AUTO) 1 % (1-7); LYMPHOCYTES # (AUTO) 2.41 x10^3/uL (1-3.4); LYMPHOCYTES % (AUTO) 21 % (22-44); MD SCAN; MONOCYTES # (AUTO) 0.85 x10^3/uL (0.2-0.8); MONOCYTES % (AUTO) 7 % (2-9); NEUTROPHILS # (AUTO) 8.36 x10^3/uL (1.8-6.8); NEUTROPHILS % (AUTO) 71 % (42-75)
[2020-01-25 07:35] VITALS: BP 121/75
[2020-01-25] MEDS: PANTOPRAZOLE 40 MG IV IVPush SCH ×2 (08:03→20:01)
[2020-01-25] MEDS: PROMETHAZINE 25 MG/ML, 1ML IM PRN (08:05)
[2020-01-25] MEDS ORDERED: LIDOCAINE 1%, 10ML ONE (08:28)
[2020-01-25] MEDS ORDERED: FLUMAZENIL 0.1 MG/1 ML, 5ML ONE (08:30)
[2020-01-25] MEDS ORDERED: NALOXONE 1 MG/ML, 2ML ONE (08:30)
[2020-01-25] MEDS ORDERED: FENTANYL PF 100 MCG/2ML ONE (08:30)
[2020-01-25] MEDS ORDERED: MIDAZOLAM 1 MG/ML, 5ML ONE (08:30)
[2020-01-25] MEDS: morphine SULFATE 10 MG/ML, 1ML IVPush PRN ×3 (08:37→20:01)
[2020-01-25] MEDS: D5%-0.45% NACL 1,000 ML IV SCH (14:31)
[2020-01-25 14:38] VITALS: BP 118/71
[2020-01-25 19:43] VITALS: BP 117/75
[2020-01-25] MEDS: METOCLOPRAMIDE 5 MG/ML, 2ML IVPush PRN (20:00)
[2020-01-25] MEDS: HEPARIN 5,000 UNITS/ML, 1ML IV PRN (21:22)
[2020-01-26 00:09] VITALS: BP 115/75
[2020-01-26] MEDS: D5%-0.45% NACL 1,000 ML IV SCH ×3 (00:16→19:11)
[2020-01-26] MEDS: METOCLOPRAMIDE 5 MG/ML, 2ML IVPush PRN ×3 (00:21→20:52)
[2020-01-26] MEDS: morphine SULFATE 10 MG/ML, 1ML IVPush PRN ×7 (00:22→20:53)
[2020-01-26] MEDS: HEPARIN 25,000 UNITS/250ML PMX 250 ML IV PRN ×2 (01:53→21:00)
[2020-01-26 04:13] LABS: MEAN CORPUSCULAR HEMOGLOBIN 27.7 pg (27.5-34.5); MEAN CORPUSCULAR HGB CONC 32.5 g/dL (33.2-36.2); MEAN CORPUSCULAR VOLUME 85.2 fL (81-97); RED BLOOD COUNT 4.74 x10^6/uL (4.38-5.82); RED CELL DISTRIBUTION WIDTH 14.3 % (9.4-14.8)
[2020-01-26 05:45] LABS: BASOPHILS # (AUTO) 0.05 x10^3/uL (0-0.1); BASOPHILS % (AUTO) 1 % (0-1); EOSINOPHILS # (AUTO) 0.16 x10^3/uL (0-0.4); EOSINOPHILS % (AUTO) 2 % (1-7); LYMPHOCYTES # (AUTO) 2.15 x10^3/uL (1-3.4); LYMPHOCYTES % (AUTO) 20 % (22-44); MD SCAN; MEAN PLATELET VOLUME 11.9 fL (7.4-10.4); MONOCYTES # (AUTO) 0.82 x10^3/uL (0.2-0.8); MONOCYTES % (AUTO) 8 % (2-9); NEUTROPHILS % (AUTO) 70 % (42-75); PLATELET COUNT 55 x10^3/uL (130-400)
[2020-01-26] MEDS: SODIUM CHLORIDE 0.9% 1,000 ML IV SCH (07:54)
[2020-01-26 08:03] VITALS: BP 117/75
[2020-01-26] MEDS: PANTOPRAZOLE 40 MG IV IVPush SCH ×2 (09:59→20:46)
[2020-01-26] MEDS ORDERED: LORazepam 2 MG/ML, 1ML IVPush PRN (10:00)
[2020-01-26] MEDS ORDERED: OMNIPAQUE 350 MG/ML, 100ML BOTTLE ONE (12:07)
[2020-01-26 15:40] VITALS: BP 116/75
[2020-01-26 19:08] VITALS: BP 117/72
[2020-01-27 01:12] VITALS: BP 113/71
[2020-01-27] MEDS: morphine SULFATE 10 MG/ML, 1ML IVPush PRN ×5 (01:28→20:48)
[2020-01-27] MEDS: D5%-0.45% NACL 1,000 ML IV SCH ×2 (05:25→15:32)
[2020-01-27] MEDS: HEPARIN 5,000 UNITS/ML, 1ML IV PRN (05:40)
[2020-01-27 07:12] VITALS: BP 110/74
[2020-01-27] MEDS: PANTOPRAZOLE 40 MG IV IVPush SCH ×2 (09:31→20:48)
[2020-01-27 12:17] LABS: D-DIMER 2.2 ug/mlFEU (0.00-0.52)
[2020-01-27 12:21] LABS: C-REACTIVE PROTEIN, QUANT 7.1 mg/dL (0.02-0.49)
[2020-01-27 13:07] LABS: HCT (SEDRATE) 41.7 % (39.2-51.8)
[2020-01-27 13:16] VITALS: BP 114/74
[2020-01-27] MEDS: HEPARIN 25,000 UNITS/250ML PMX 250 ML IV PRN (13:58)
[2020-01-27 18:29] VITALS: BP 118/74
[2020-01-28] VITALS (8 sets, daily range): BP systolic 100–130; BP diastolic 64–86
[2020-01-28] MEDS: morphine SULFATE 10 MG/ML, 1ML IVPush PRN ×3 (00:23→06:58)
[2020-01-28] MEDS ORDERED: MORPHINE SULFATE 4 MG/ML, 1ML ONE ×2 (04:02→06:55)
[2020-01-28] MEDS: D5%-0.45% NACL 1,000 ML IV SCH ×2 (04:05→15:53)
[2020-01-28] MEDS: PANTOPRAZOLE 40 MG IV IVPush SCH ×2 (07:47→21:53)
[2020-01-28] MEDS ORDERED: CHLORHEXIDINE 15 ML UDC MM ONE (08:00)
[2020-01-28] MEDS ORDERED: CHLORHEXIDINE 15 ML UDC ONE (08:02)
[2020-01-28 08:15] LABS: MEAN CORPUSCULAR HEMOGLOBIN 27.3 pg (27.5-34.5); MEAN CORPUSCULAR HGB CONC 31.7 g/dL (33.2-36.2); MEAN PLATELET VOLUME 9.7 fL (7.4-10.4); RED BLOOD COUNT 4.59 x10^6/uL (4.38-5.82); RED CELL DISTRIBUTION WIDTH 14.6 % (9.4-14.8)
[2020-01-28 08:19] LABS: PLATELET COUNT 43 x10^3/uL (130-400)
[2020-01-28 08:34] LABS: BASOPHILS # (AUTO) 0.05 x10^3/uL (0-0.1); BASOPHILS % (AUTO) 1 % (0-1); EOSINOPHILS # (AUTO) 0.12 x10^3/uL (0-0.4); EOSINOPHILS % (AUTO) 2 % (1-7); LYMPHOCYTES # (AUTO) 1.29 x10^3/uL (1-3.4); LYMPHOCYTES % (AUTO) 17 % (22-44); MD SCAN; MONOCYTES # (AUTO) 0.75 x10^3/uL (0.2-0.8); MONOCYTES % (AUTO) 10 % (2-9); NEUTROPHILS # (AUTO) 5.46 x10^3/uL (1.8-6.8); NEUTROPHILS % (AUTO) 71 % (42-75)
[2020-01-28] MEDS ORDERED: MIDAZOLAM 1 MG/ML, 2ML ONE (09:20)
[2020-01-28] MEDS ORDERED: FENTANYL PF 250 MCG/5ML ONE (09:20)
[2020-01-28] MEDS ORDERED: CEFOTETAN PMX ONE (09:51)
[2020-01-28] MEDS ORDERED: SUGAMMADEX 200 MG/2 ML IVPush ONE (09:51)
[2020-01-28] MEDS ORDERED: DEXAMETHASONE 4 MG/ML, 1ML ONE (09:51)
[2020-01-28] MEDS ORDERED: ROCURONIUM 10MG/ML,5ML ONE (09:51)
[2020-01-28] MEDS ORDERED: PROPOFOL 10 MG/ML, 20ML ONE (09:51)
[2020-01-28] MEDS ORDERED: ONDANSETRON 2MG/ML, 2ML ONE (09:51)
[2020-01-28] MEDS ORDERED: MIDAZOLAM 1 MG/ML, 2ML IV PRN (10:30)
[2020-01-28] MEDS ORDERED: FENTANYL PF 100 MCG/2ML IV PRN (10:30)
[2020-01-28] MEDS ORDERED: MEPERIDINE/PF 25MG/0.5ML IVPush PRN (10:30)
[2020-01-28] MEDS ORDERED: LABETALOL 5MG/ML, 20ML IV PRN (10:30)
[2020-01-28] MEDS ORDERED: EPHEDRINE 50 MG/ML, 1ML IVPush PRN (10:30)
[2020-01-28] MEDS ORDERED: ONDANSETRON 2MG/ML, 2ML IVPush PRN (10:30)
[2020-01-28] MEDS ORDERED: PROMETHAZINE 25 MG/ML, 1ML IVPush PRN (10:30)
[2020-01-28] MEDS ORDERED: OXYcodone 5 MG/5 ML ORAL.SOL UDC PO PRN (10:30)
[2020-01-28] MEDS ORDERED: ALBUTEROL SULFATE 2.5 MG/3 ML NPPB PRN (10:30)
[2020-01-28] MEDS ORDERED: PROMETHAZINE 12.5 MG SUPP PR PRN (10:30)
[2020-01-28] MEDS ORDERED: DIAZEPAM 5 MG/ML, 2ML IVPush PRN (10:30)
[2020-01-28] MEDS ORDERED: hydrALAzine 20 MG/ML, 1ML IV PRN (10:30)
[2020-01-28] MEDS ORDERED: HYDROmorphone 1 MG/ML, 1ML INJ IVPush PRN (10:30)
[2020-01-28] MEDS ORDERED: DIPHENHYDRAMINE 50 MG/ML, 1ML IVPush PRN ×2 (10:30)
[2020-01-28] MEDS ORDERED: BUPIVACAINE/PF-EPI 0.25% 1:200K ONE (11:02)
[2020-01-28] MEDS ORDERED: [UNRECOGNIZED DRUG - REMARK] MC PRN (13:30)
[2020-01-28] MEDS: MORPHINE SULFATE 4 MG/ML, 1ML IVPush PRN ×3 (15:59→21:53)
[2020-01-29 00:21] VITALS: BP 111/73
[2020-01-29] MEDS: D5%-0.45% NACL 1,000 ML IV SCH ×3 (00:55→21:17)
[2020-01-29] MEDS: MORPHINE SULFATE 4 MG/ML, 1ML IVPush PRN ×6 (01:51→21:18)
[2020-01-29 05:34] LABS: ALANINE AMINOTRANSFERASE 18 U/L (12-78); ALBUMIN 2.5 g/dL (3.4-5.0); ANION GAP 6 mmol/L (5-15); CALCIUM 8.2 mg/dL (8.5-10.1); CHLORIDE 104 mmol/L (98-107); CREATININE 1.48 mg/dL (0.7-1.3)
[2020-01-29 05:37] LABS: ALKALINE PHOSPHATASE 121 U/L (45-117); TOTAL PROTEIN 5.1 g/dL (6.4-8.2)
[2020-01-29 06:32] LABS: MEAN CORPUSCULAR HEMOGLOBIN 28.2 pg (27.5-34.5); MEAN CORPUSCULAR HGB CONC 33.4 g/dL (33.2-36.2); MEAN CORPUSCULAR VOLUME 84.4 fL (81-97); MEAN PLATELET VOLUME 9.9 fL (7.4-10.4); RED BLOOD COUNT 4.01 x10^6/uL (4.38-5.82)
[2020-01-29 06:34] LABS: PLATELET COUNT 48 x10^3/uL (130-400)
[2020-01-29 06:36] LABS: BASOPHILS # (AUTO) 0.01 x10^3/uL (0-0.1); BASOPHILS % (AUTO) 0 % (0-1); EOSINOPHILS % (AUTO) 0 % (1-7); LYMPHOCYTES % (AUTO) 8 % (22-44); MD SCAN; MONOCYTES # (AUTO) 1.39 x10^3/uL (0.2-0.8); MONOCYTES % (AUTO) 10 % (2-9); NEUTROPHILS % (AUTO) 83 % (42-75)
[2020-01-29 07:51] VITALS: BP 106/67
[2020-01-29 09:33] LABS: BASOPHILS # (AUTO) 0.09 x10^3/uL (0-0.1); BASOPHILS % (AUTO) 1 % (0-1); EOSINOPHILS % (AUTO) 0 % (1-7); LYMPHOCYTES # (AUTO) 1.57 x10^3/uL (1-3.4); LYMPHOCYTES % (AUTO) 9 % (22-44); MD SCAN; MEAN CORPUSCULAR HGB CONC 32.9 g/dL (33.2-36.2); MEAN CORPUSCULAR VOLUME 85.1 fL (81-97); MONOCYTES # (AUTO) 1.36 x10^3/uL (0.2-0.8); MONOCYTES % (AUTO) 8 % (2-9); NEUTROPHILS # (AUTO) 13.81 x10^3/uL (1.8-6.8); NEUTROPHILS % (AUTO) 82 % (42-75); PLATELET COUNT 56 x10^3/uL (130-400); RED BLOOD COUNT 4.27 x10^6/uL (4.38-5.82); RED CELL DISTRIBUTION WIDTH 14.8 % (9.4-14.8)
[2020-01-29] MEDS: PANTOPRAZOLE 40 MG IV IVPush SCH (09:55)
[2020-01-29 12:52] VITALS: BP 115/73
[2020-01-29 19:41] VITALS: BP 119/74
[2020-01-30 02:03] VITALS: BP 121/68
[2020-01-30] MEDS: MORPHINE SULFATE 4 MG/ML, 1ML IVPush PRN ×9 (03:11→21:48)
[2020-01-30] MEDS: D5%-0.45% NACL 1,000 ML IV SCH ×2 (05:05→18:27)
[2020-01-30 06:08] LABS: ALBUMIN 2.5 g/dL (3.4-5.0); ANION GAP 9 mmol/L (5-15); CALCIUM 7.7 mg/dL (8.5-10.1); CHLORIDE 105 mmol/L (98-107)
[2020-01-30 06:11] LABS: ALANINE AMINOTRANSFERASE 18 U/L (12-78); ALKALINE PHOSPHATASE 110 U/L (45-117); BILIRUBIN,TOTAL 3.7 mg/dL (0.2-1.0); CREATININE 1.05 mg/dL (0.7-1.3)
[2020-01-30 07:00] LABS: MEAN CORPUSCULAR HEMOGLOBIN 28.3 pg (27.5-34.5); MEAN CORPUSCULAR HGB CONC 33.7 g/dL (33.2-36.2); MEAN CORPUSCULAR VOLUME 83.9 fL (81-97); MEAN PLATELET VOLUME 9.2 fL (7.4-10.4); RED BLOOD COUNT 3.72 x10^6/uL (4.38-5.82); RED CELL DISTRIBUTION WIDTH 15.1 % (9.4-14.8)
[2020-01-30 07:01] LABS: PLATELET COUNT 48 x10^3/uL (130-400)
[2020-01-30 07:02] LABS: BASOPHILS # (AUTO) 0.04 x10^3/uL (0-0.1); BASOPHILS % (AUTO) 0 % (0-1); EOSINOPHILS # (AUTO) 0.36 x10^3/uL (0-0.4); EOSINOPHILS % (AUTO) 3 % (1-7); LYMPHOCYTES # (AUTO) 2.08 x10^3/uL (1-3.4); LYMPHOCYTES % (AUTO) 14 % (22-44); MD MORPH REVIEW ONLY; MONOCYTES # (AUTO) 1.35 x10^3/uL (0.2-0.8); MONOCYTES % (AUTO) 9 % (2-9); NEUTROPHILS # (AUTO) 10.72 x10^3/uL (1.8-6.8); NEUTROPHILS % (AUTO) 74 % (42-75)
[2020-01-30 07:04] LABS: ANISOCYTOSIS 1+
[2020-01-30 07:05] LABS: POLYCHROMASIA 1+; SCHISTOCYTES 1+
[2020-01-30 07:06] LABS: <PLATELET ESTIMATE> DECREASED; LARGE PLATELETS 1+
[2020-01-30 08:23] VITALS: BP 111/69
[2020-01-30] MEDS: PANTOPRAZOLE 40 MG IV IVPush SCH ×2 (09:00→09:25)
[2020-01-30] MEDS: PANTOPRAZOLE 40MG TABLET PO SCH (09:47)
[2020-01-30] MEDS ORDERED: POTASSIUM CHLORIDE 40 MEQ in SODIUM CHLORIDE 0.9% 500 ML IV ONE (10:00)
[2020-01-30 10:26] LABS: BASOPHILS # (AUTO) 0.01 x10^3/uL (0-0.1); BASOPHILS % (AUTO) 0 % (0-1); EOSINOPHILS # (AUTO) 0.39 x10^3/uL (0-0.4); EOSINOPHILS % (AUTO) 2 % (1-7); LYMPHOCYTES # (AUTO) 1.88 x10^3/uL (1-3.4); LYMPHOCYTES % (AUTO) 12 % (22-44); MD SCAN; MEAN CORPUSCULAR HEMOGLOBIN 28.3 pg (27.5-34.5); MEAN CORPUSCULAR HGB CONC 33.4 g/dL (33.2-36.2); MEAN CORPUSCULAR VOLUME 84.8 fL (81-97); MONOCYTES # (AUTO) 1.36 x10^3/uL (0.2-0.8); MONOCYTES % (AUTO) 9 % (2-9); NEUTROPHILS # (AUTO) 12.42 x10^3/uL (1.8-6.8); NEUTROPHILS % (AUTO) 77 % (42-75); RED BLOOD COUNT 3.85 x10^6/uL (4.38-5.82); RED CELL DISTRIBUTION WIDTH 15.2 % (9.4-14.8)
[2020-01-30 10:30] LABS: PLATELET COUNT 46 x10^3/uL (130-400)
[2020-01-30 15:33] VITALS: BP 115/76
[2020-01-30] MEDS: POTASSIUM CHLORIDE 20 MEQ PACKET PO SCH ×2 (15:47→21:45)
[2020-01-30] MEDS: HEPARIN 5,000 UNITS/ML, 1ML IV PRN ×2 (16:07→22:40)
[2020-01-30] MEDS: HEPARIN 25,000 UNITS/250ML PMX 250 ML IV PRN (16:07)
[2020-01-30] MEDS ORDERED: POTASSIUM CHLORIDE 20 MEQ PACKET PO SCH (17:00)
[2020-01-30 18:18] VITALS: BP 109/72
[2020-01-31] MEDS: MORPHINE SULFATE 4 MG/ML, 1ML IVPush PRN ×5 (00:16→09:37)
[2020-01-31 01:00] VITALS: BP 107/70
[2020-01-31 05:35] LABS: ALBUMIN 2.3 g/dL (3.4-5.0); ANION GAP 6 mmol/L (5-15); CALCIUM 8.2 mg/dL (8.5-10.1); CHLORIDE 105 mmol/L (98-107)
[2020-01-31 05:39] LABS: ALANINE AMINOTRANSFERASE 15 U/L (12-78); ALKALINE PHOSPHATASE 114 U/L (45-117); BILIRUBIN,TOTAL 2.4 mg/dL (0.2-1.0); CREATININE 0.91 mg/dL (0.7-1.3); TOTAL PROTEIN 5.1 g/dL (6.4-8.2)
[2020-01-31] MEDS: HEPARIN 5,000 UNITS/ML, 1ML IV PRN (05:46)
[2020-01-31] MEDS: PANTOPRAZOLE 40MG TABLET PO SCH (05:46)
[2020-01-31 06:10] VITALS: BP 104/66
[2020-01-31 06:23] LABS: MEAN CORPUSCULAR HEMOGLOBIN 28.4 pg (27.5-34.5); MEAN CORPUSCULAR HGB CONC 33.7 g/dL (33.2-36.2); MEAN CORPUSCULAR VOLUME 84.3 fL (81-97); MEAN PLATELET VOLUME 11.1 fL (7.4-10.4); RED CELL DISTRIBUTION WIDTH 15.4 % (9.4-14.8)
[2020-01-31 06:24] LABS: ANISOCYTOSIS 1+; BASOPHILS # (AUTO) 0.01 x10^3/uL (0-0.1); BASOPHILS % (AUTO) 0 % (0-1); EOSINOPHILS # (AUTO) 0.01 x10^3/uL (0-0.4); EOSINOPHILS % (AUTO) 0 % (1-7); LYMPHOCYTES # (AUTO) 1.79 x10^3/uL (1-3.4); LYMPHOCYTES % (AUTO) 12 % (22-44); MD MORPH REVIEW ONLY; MONOCYTES # (AUTO) 0.76 x10^3/uL (0.2-0.8); MONOCYTES % (AUTO) 5 % (2-9); NEUTROPHILS # (AUTO) 12.05 x10^3/uL (1.8-6.8); NEUTROPHILS % (AUTO) 82 % (42-75); POLYCHROMASIA 1+
[2020-01-31 06:25] LABS: <PLATELET ESTIMATE> DECREASED; LARGE PLATELETS 1+; PLATELET COUNT 39 x10^3/uL (130-400); SCHISTOCYTES 2+
[2020-01-31] MEDS ORDERED: POTASSIUM CHLORIDE 20 MEQ PACKET PO SCH ×2 (09:00→10:00)
[2020-01-31] MEDS ORDERED: ONDA4TAB7 PO (11:31)
[2020-01-31] MEDS ORDERED: PHOS250T3 PO (11:31)
[2020-01-31] MEDS ORDERED: OXYC-302 PO (11:31)
[2020-01-31] MEDS ORDERED: POTA20PA25 PO (11:31)
[2020-01-31] MEDS ORDERED: OXYC-307 PO (14:25)
[2020-01-31] MEDS ORDERED: D5%-0.45% NACL 1,000 ML IV SCH (14:30)
== END 2020-01-31 13:55 | disposition home or self-care (01) | DRG 423 ==
LOC: ED 10:29 → EDIP 12:55 → 4NE 14:14 → 4NW 19:44
PROVIDERS: ADMIT Hospitalist; ATTEND Internal Medicine
PROC: 0FB03ZX Excision of Liver, Percutaneous Approach, Diagnostic (ICD-10-PCS; 2020-01-25)
PROC: 0D160ZA Bypass Stomach to Jejunum, Open Approach (ICD-10-PCS; 2020-01-28)
PROC: 0W9G3ZZ Drainage of Peritoneal Cavity, Percutaneous Approach (ICD-10-PCS; 2020-01-28)
PROC: 30233N1 Transfusion of Nonautologous Red Blood Cells into Peripheral Vein, Percutaneous Approach (ICD-10-PCS; 2020-01-28)
PROC: 0DBU0ZZ Excision of Omentum, Open Approach (ICD-10-PCS; principal; 2020-01-28 09:30)
DX: C25.9 Malignant neoplasm of pancreas, unspecified (principal); E43 Unspecified severe protein-calorie malnutrition; C78.7 Secondary malignant neoplasm of liver and intrahepatic bile duct; C79.51 Secondary malignant neoplasm of bone; E87.2 Acidosis; K31.1 Adult hypertrophic pyloric stenosis; K31.5 Obstruction of duodenum; R18.8 Other ascites; D64.9 Anemia, unspecified; D69.6 Thrombocytopenia, unspecified; D72.829 Elevated white blood cell count, unspecified; D73.5 Infarction of spleen; F17.210 Nicotine dependence, cigarettes, uncomplicated; K42.9 Umbilical hernia without obstruction or gangrene; G89.29 Other chronic pain; M54.5 Low back pain; R91.1 Solitary pulmonary nodule; Z68.27 Body mass index [BMI] 27.0-27.9, adult; Z86.711 Personal history of pulmonary embolism; Z86.718 Personal history of other venous thrombosis and embolism; Z90.49 Acquired absence of other specified parts of digestive tract; Z03.818 Encounter for observation for suspected exposure to other biological agents ruled out
CPT/HCPCS: 36415; 74018; 74340; 85613; 85732; 87806; 96374; 96375; 99285; J3490; 36430; 47000; 71260; 74177; 74181; 76942; 80053; 81001; 82378; 82607; 83605; 83615; 83690; 83735; 84100; 85025; 85379; 85384; 85520; 85610; 85651; 85730; 86038; 86140; 86301; 86430; 86431; 86705; 86706; 86803; 86850; 86900; 86923; 87086; 87340; 87635; 88307; 88333; 99156; 99157; G0378; J1100; J1644; J2250; J2405; J2550; J2704; J3010; J3480; Q9967; C9113; G0475; J2060; J2270; J2310; J2765; J7030; J7040; P9035

== ENCOUNTER 2020-02-04 09:22 | Inpatient (IN) | payer BC ==
[~2020-02-04] VITALS: Ht 172.7 cm; Wt 87.1 kg
[~2020-02-04 09:22] MED LIST changes: +METR250T18 PO; +OMEP20CA20 PO; +ONDA4TAB7 PO; +OXYC-302 PO; +OXYC-307 PO; +PHOS250T3 PO; +POTA20PA25 PO; +RIVA20TA PO; +TETR-17 PO
[2020-02-04] MEDS ORDERED: ONDANSETRON 2MG/ML, 2ML IVPush ONE (10:00)
[2020-02-04] MEDS ORDERED: SODIUM CHLORIDE FLUSH 10ML SYR IVF ONE (10:00)
[2020-02-04] MEDS ORDERED: ONDANSETRON 2MG/ML, 2ML ONE (10:19)
[2020-02-04] MEDS ORDERED: HYDROmorphone 1 MG/ML, 1ML INJ ONE ×2 (10:19→11:05)
[2020-02-04] MEDS: HYDROmorphone 2 MG/ML, 1ML IVPush PRN ×2 (10:26→11:06)
--- NOTE | 2020-02-04 10:46 | NUR ---
IV STARTED, ORDERED MEDS GIVEN FOR PAIN. PT PLACED ON VITALS MONITORS. WILL CONTINUE TO MONITOR.
[2020-02-04 10:53] LABS: ALBUMIN 2.6 g/dL (3.4-5.0); ANION GAP 9 mmol/L (5-15); CALCIUM 8.5 mg/dL (8.5-10.1); CHLORIDE 104 mmol/L (98-107); CREATININE 0.85 mg/dL (0.7-1.3)
[2020-02-04] MEDS ORDERED: APIX5TAB PO (11:10)
--- NOTE | 2020-02-04 11:11 | NUR ---
PT MEDICATED FOR PAIN PER EMAR. VSS AT THIS TIME. WILL CONTINUE TO MONITOR.
[2020-02-04 11:14] LABS: INTERNATIONAL NORMALIZED RATIO 1.24 (0.93-1.1); PROTHROMBIN TIME 12.8 Seconds (9.6-11.5)
--- NOTE | 2020-02-04 11:36 | NUR ---
CALLED [facility] TO SEE IF COMING TO GET PT FOR VASC US. NO ANSWER. WILL TRY AGAIN LATER.
[2020-02-04 11:39] LABS: MEAN CORPUSCULAR HGB CONC 33.4 g/dL (33.2-36.2); MEAN CORPUSCULAR VOLUME 86.9 fL (81-97); MEAN PLATELET VOLUME 11.9 fL (7.4-10.4); PLATELET COUNT 104 x10^3/uL (130-400); RED BLOOD COUNT 3.15 x10^6/uL (4.38-5.82); RED CELL DISTRIBUTION WIDTH 17.2 % (9.4-14.8)
[2020-02-04 11:40] LABS: MD YES
[2020-02-04 11:41] LABS: BAND#(MANUAL) 0.77 x10^3/uL; BANDS%(MANUAL) 4 % (0-7); EOS#(MANUAL) 0.38 x10^3/uL (0.0-0.4); EOS% (MANUAL) 2 % (1-7); LYMPH#(MANUAL) 2.11 x10^3/uL (1-3.4); LYMPHS% (MANUAL) 11 % (22-44); MONOS#(MANUAL) 1.73 x10^3/uL (0.3-2.7); MONOS% (MANUAL) 9 % (2-9); MYELOCYTES# (MANUAL) 0.19 x10^3/uL (0-0); MYELOCYTES% (MANUAL) 1 % (0-0); SEG#(MANUAL) 14.02 x10^3/uL (1.8-6.8); SEGS% (MANUAL) 73 % (42-75)
[2020-02-04 11:42] LABS: ANISOCYTOSIS 1+; POLYCHROMASIA 1+; SCHISTOCYTES 1+
[2020-02-04 11:43] LABS: <PLATELET ESTIMATE> DECREASED; LARGE PLATELETS 1+
[2020-02-04] MEDS ORDERED: AZITHROMYCIN 500 MG in SODIUM CHLORIDE 0.9% 250 ML IVPB ONE (12:00)
[2020-02-04] MEDS ORDERED: CEFTRIAXONE PMX 1GM/50ML 50 ML IVPB ONE (12:00)
[2020-02-04] MEDS ORDERED: CEFTRIAXONE PMX 1GM/50ML 50 ML ONE (12:27)
--- NOTE | 2020-02-04 12:35 | NUR ---
PT DESATING TO 85% ON RA. PT PLACED ON 2L O2 PER N/C. FAMILY REMAINS AT BEDSIDE. NO COMPLAINTS AT THIS TIME FROM PT. BLOOD CULTURES BEING DRAWN.
--- NOTE | 2020-02-04 13:57 | NUR ---
VASCULAR US IN ROOM AT THIS TIME ALONG WITH HOSPITALIST.
--- NOTE | 2020-02-04 14:03 | NUR ---
ORDERED ABX STARTED. VSS, SEE CHARTED.
[2020-02-04 14:24] LABS: ALBUMIN 2.6 g/dL (3.4-5.0); BILIRUBIN, DIRECT 0.7 mg/dL (0.1-0.2)
[2020-02-04] MEDS ORDERED: ONDANSETRON 2MG/ML, 2ML IVPush PRN (14:30)
[2020-02-04] MEDS ORDERED: hydrALAzine 20 MG/ML, 1ML IVPush PRN (14:30)
[2020-02-04] MEDS ORDERED: MELATONIN 5 MG TABLET PO PRN (14:30)
[2020-02-04] MEDS ORDERED: ACETAMINOPHEN 325 MG TABLET PO PRN (14:30)
[2020-02-04] MEDS ORDERED: POLYETHYLENE GLYCOL 17 GM PACKET PO PRN (14:30)
[2020-02-04 14:31] LABS: BILIRUBIN,TOTAL 1.7 mg/dL (0.2-1.0); TOTAL PROTEIN 5.6 g/dL (6.4-8.2)
[2020-02-04 14:34] LABS: D-DIMER (DIC) 26.68 ug/mlFEU (0.00-0.52); PROTIME 12.9 Seconds (9.6-11.5)
--- NOTE | 2020-02-04 15:20 | NUR ---
VASC US AT BEDSIDE
[2020-02-04] MEDS ORDERED: HEPARIN 5,000 UNITS/ML, 1ML IV PRN (15:30)
[2020-02-04] MEDS ORDERED: HEPARIN 5,000 UNITS/ML, 1ML IV ONE (15:30)
[2020-02-04] MEDS ORDERED: HEPARIN 25,000 UNITS/250ML PMX 250 ML IV PRN (15:30)
[2020-02-04 15:44] LABS: HCT (SEDRATE) 25.6 % (39.2-51.8)
[2020-02-04] MEDS ORDERED: HEPARIN 5,000 UNITS/ML, 1ML ONE (15:54)
[2020-02-04] MEDS ORDERED: HEPARIN 25,000 UNITS/250ML PMX 250 ML ONE (15:54)
[2020-02-04] MEDS ORDERED: MORPHINE SULFATE 4 MG/ML, 1ML ONE (17:14)
[2020-02-04] MEDS ORDERED: MORPHINE SULFATE 4 MG/ML, 1ML IVPush ONE (17:30)
--- NOTE | 2020-02-04 17:50 | NUR ---
2 more IV's STARTED. AFTER 2 FAILED ATTEMPTS. WILL START ORDERED MEDS.
[2020-02-04] MEDS: MEROPENEM 1 GM in SODIUM CHLORIDE 0.9% 100 ML IV SCH (18:01)
[2020-02-04] MEDS: LACTATED RINGERS 1,000 ML IV SCH (18:01)
[2020-02-04 19:09] VITALS: BP 121/74
[2020-02-04] MEDS: HYDROmorphone PCA 30 MG/30 ML IV PRN (19:49)
[2020-02-04 20:36] VITALS: BP 121/74
[2020-02-04] MEDS ORDERED: FENTANYL PF 100 MCG/2ML ONE (21:39)
[2020-02-04] MEDS ORDERED: NALOXONE 1 MG/ML, 2ML ONE (21:39)
[2020-02-04] MEDS ORDERED: LIDOCAINE 1%, 10ML ONE (22:10)
[2020-02-04] MEDS ORDERED: FENTANYL PF 100 MCG/2ML IVPush ONE (22:32)
[2020-02-04] MEDS: HEPARIN 25,000 UNITS/250ML PMX 250 ML IV SCH (23:00)
[2020-02-04] MEDS ORDERED: ALTEPLASE 10 MG in SODIUM CHLORIDE 0.9% 90 ML IV SCH (23:00)
[2020-02-04] MEDS: ALTEPLASE 10 MG in SODIUM CHLORIDE 0.9% 90 ML IV SCH (23:06)
[2020-02-05] MEDS: MEROPENEM 1 GM in SODIUM CHLORIDE 0.9% 100 ML IV SCH ×4 (00:34→23:25)
[2020-02-05] MEDS: ALTEPLASE 10 MG in SODIUM CHLORIDE 0.9% 90 ML IV SCH (03:25)
[2020-02-05 04:00] VITALS: BP 98/54
[2020-02-05 05:42] LABS: INTERNATIONAL NORMALIZED RATIO 1.12 (0.93-1.1); PROTHROMBIN TIME 11.6 Seconds (9.6-11.5)
[2020-02-05 05:44] LABS: ANION GAP 8 mmol/L (5-15); CALCIUM 8.1 mg/dL (8.5-10.1); CHLORIDE 105 mmol/L (98-107); CREATININE 0.87 mg/dL (0.7-1.3)
[2020-02-05 05:47] LABS: MEAN CORPUSCULAR HEMOGLOBIN 28.4 pg (27.5-34.5); MEAN CORPUSCULAR HGB CONC 31.8 g/dL (33.2-36.2); MEAN CORPUSCULAR VOLUME 89.1 fL (81-97); MEAN PLATELET VOLUME 10.5 fL (7.4-10.4); PLATELET COUNT 146 x10^3/uL (130-400); RED CELL DISTRIBUTION WIDTH 18.8 % (9.4-14.8)
[2020-02-05 06:28] LABS: MD YES
[2020-02-05 06:30] LABS: ANISOCYTOSIS 1+; BAND#(MANUAL) 0.19 x10^3/uL; BANDS%(MANUAL) 1 % (0-7); EOS#(MANUAL) 0.57 x10^3/uL (0.0-0.4); EOS% (MANUAL) 3 % (1-7); LYMPH#(MANUAL) 2.87 x10^3/uL (1-3.4); LYMPHS% (MANUAL) 15 % (22-44); MONOS#(MANUAL) 1.53 x10^3/uL (0.3-2.7); MONOS% (MANUAL) 8 % (2-9); POLYCHROMASIA 1+; SCHISTOCYTES 1+; SEG#(MANUAL) 13.94 x10^3/uL (1.8-6.8); SEGS% (MANUAL) 73 % (42-75)
[2020-02-05 06:31] LABS: <PLATELET ESTIMATE> ADEQUATE; LARGE PLATELETS 1+
[2020-02-05] MEDS: PANTOPRAZOLE 40 MG IV IVPush SCH (08:33)
[2020-02-05] MEDS: LACTATED RINGERS 1,000 ML IV SCH ×2 (08:33→23:07)
[2020-02-05 08:59] LABS: MICROSCOPIC INDICATED
[2020-02-05 11:47] LABS: MEAN CORPUSCULAR HEMOGLOBIN 28.5 pg (27.5-34.5); MEAN CORPUSCULAR HGB CONC 32.6 g/dL (33.2-36.2); MEAN CORPUSCULAR VOLUME 87.5 fL (81-97); MEAN PLATELET VOLUME 10.8 fL (7.4-10.4); PLATELET COUNT 114 x10^3/uL (130-400); RED CELL DISTRIBUTION WIDTH 18.5 % (9.4-14.8)
[2020-02-05 11:56] LABS: INTERNATIONAL NORMALIZED RATIO 1.13 (0.93-1.1); PROTHROMBIN TIME 11.7 Seconds (9.6-11.5)
[2020-02-05 12:03] LABS: MD YES
[2020-02-05 12:04] LABS: <PLATELET ESTIMATE> DECREASED; ANISOCYTOSIS 1+; BAND#(MANUAL) 0.17 x10^3/uL; BANDS%(MANUAL) 1 % (0-7); LYMPH#(MANUAL) 1.67 x10^3/uL (1-3.4); LYMPHS% (MANUAL) 10 % (22-44); METAMYELOCYTES# (MANUAL) 0.17 x10^3/uL (0-0); METAMYELOCYTES% (MANUAL) 1 % (0-1); MONOS#(MANUAL) 0.84 x10^3/uL (0.3-2.7); MONOS% (MANUAL) 5 % (2-9); POLYCHROMASIA 1+; SCHISTOCYTES 1+; SEG#(MANUAL) 13.86 x10^3/uL (1.8-6.8); SEGS% (MANUAL) 83 % (42-75)
[2020-02-05 12:05] LABS: LARGE PLATELETS 1+
[2020-02-05] MEDS ORDERED: LIDOCAINE 1%, 10ML ONE (14:14)
[2020-02-05] MEDS ORDERED: NALOXONE 1 MG/ML, 2ML ONE (14:18)
[2020-02-05] MEDS ORDERED: FENTANYL PF 100 MCG/2ML ONE (14:18)
[2020-02-05 16:27] LABS: MEAN CORPUSCULAR HEMOGLOBIN 28.6 pg (27.5-34.5); MEAN CORPUSCULAR HGB CONC 32.7 g/dL (33.2-36.2); MEAN CORPUSCULAR VOLUME 87.7 fL (81-97); MEAN PLATELET VOLUME 10.9 fL (7.4-10.4); PLATELET COUNT 115 x10^3/uL (130-400); RED BLOOD COUNT 3.03 x10^6/uL (4.38-5.82); RED CELL DISTRIBUTION WIDTH 18.5 % (9.4-14.8)
[2020-02-05 16:28] LABS: BASOPHILS # (AUTO) 0.02 x10^3/uL (0-0.1); BASOPHILS % (AUTO) 0 % (0-1); EOSINOPHILS # (AUTO) 0.33 x10^3/uL (0-0.4); EOSINOPHILS % (AUTO) 2 % (1-7); LYMPHOCYTES # (AUTO) 2.01 x10^3/uL (1-3.4); LYMPHOCYTES % (AUTO) 14 % (22-44); MD NO; MONOCYTES % (AUTO) 8 % (2-9); NEUTROPHILS # (AUTO) 10.88 x10^3/uL (1.8-6.8); NEUTROPHILS % (AUTO) 76 % (42-75)
[2020-02-05 16:37] LABS: INTERNATIONAL NORMALIZED RATIO 1.11 (0.93-1.1); PROTHROMBIN TIME 11.4 Seconds (9.6-11.5)
[2020-02-05 21:20] LABS: BASOPHILS # (AUTO) 0.24 x10^3/uL (0-0.1); BASOPHILS % (AUTO) 2 % (0-1); EOSINOPHILS # (AUTO) 0.44 x10^3/uL (0-0.4); EOSINOPHILS % (AUTO) 3 % (1-7); LYMPHOCYTES % (AUTO) 13 % (22-44); MD NO; MEAN CORPUSCULAR HEMOGLOBIN 29.1 pg (27.5-34.5); MEAN CORPUSCULAR HGB CONC 33.2 g/dL (33.2-36.2); MEAN CORPUSCULAR VOLUME 87.6 fL (81-97); MONOCYTES # (AUTO) 1.11 x10^3/uL (0.2-0.8); MONOCYTES % (AUTO) 8 % (2-9); NEUTROPHILS # (AUTO) 10.72 x10^3/uL (1.8-6.8); NEUTROPHILS % (AUTO) 74 % (42-75); PLATELET COUNT 110 x10^3/uL (130-400); RED BLOOD COUNT 2.89 x10^6/uL (4.38-5.82); RED CELL DISTRIBUTION WIDTH 18.8 % (9.4-14.8)
[2020-02-05 21:35] LABS: INTERNATIONAL NORMALIZED RATIO 1.1 (0.93-1.1); PROTHROMBIN TIME 11.3 Seconds (9.6-11.5)
[2020-02-05] MEDS: HYDROmorphone PCA 30 MG/30 ML IV PRN (23:21)
[2020-02-06 04:00] VITALS: BP 101/62
[2020-02-06 05:59] LABS: INTERNATIONAL NORMALIZED RATIO 1.06 (0.93-1.1); PROTHROMBIN TIME 10.9 Seconds (9.6-11.5)
[2020-02-06 06:39] LABS: MD YES; MEAN CORPUSCULAR HEMOGLOBIN 28.6 pg (27.5-34.5); MEAN CORPUSCULAR HGB CONC 32.4 g/dL (33.2-36.2); MEAN CORPUSCULAR VOLUME 88.4 fL (81-97); MEAN PLATELET VOLUME 10.8 fL (7.4-10.4); PLATELET COUNT 122 x10^3/uL (130-400); RED BLOOD COUNT 3.16 x10^6/uL (4.38-5.82)
[2020-02-06 06:41] LABS: ANISOCYTOSIS 1+; BAND#(MANUAL) 0.14 x10^3/uL; BANDS%(MANUAL) 1 % (0-7); EOS#(MANUAL) 0.28 x10^3/uL (0.0-0.4); EOS% (MANUAL) 2 % (1-7); LYMPH#(MANUAL) 1.69 x10^3/uL (1-3.4); LYMPHS% (MANUAL) 12 % (22-44); MONOS#(MANUAL) 0.85 x10^3/uL (0.3-2.7); MONOS% (MANUAL) 6 % (2-9); POLYCHROMASIA 1+; RED CELL DISTRIBUTION WIDTH 17.9 % (9.4-14.8); SEG#(MANUAL) 11.14 x10^3/uL (1.8-6.8); SEGS% (MANUAL) 79 % (42-75)
[2020-02-06 06:42] LABS: <PLATELET ESTIMATE> DECREASED; LARGE PLATELETS 1+; SCHISTOCYTES 1+
[2020-02-06] MEDS: MEROPENEM 1 GM in SODIUM CHLORIDE 0.9% 100 ML IV SCH ×2 (08:20→16:00)
[2020-02-06] MEDS: PANTOPRAZOLE 40 MG IV IVPush SCH (08:20)
[2020-02-06] MEDS: HEPARIN 25,000 UNITS/250ML PMX 250 ML IV SCH (09:12)
[2020-02-06] MEDS: LACTATED RINGERS 1,000 ML IV SCH (09:49)
[2020-02-06 11:23] LABS: INTERNATIONAL NORMALIZED RATIO 1.03 (0.93-1.1); PROTHROMBIN TIME 10.6 Seconds (9.6-11.5)
[2020-02-06 11:53] VITALS: BP 105/61
[2020-02-06 12:32] LABS: MEAN CORPUSCULAR HEMOGLOBIN 28.3 pg (27.5-34.5); MEAN CORPUSCULAR HGB CONC 31.8 g/dL (33.2-36.2); MEAN PLATELET VOLUME 10.6 fL (7.4-10.4); PLATELET COUNT 119 x10^3/uL (130-400); RED BLOOD COUNT 3.24 x10^6/uL (4.38-5.82); RED CELL DISTRIBUTION WIDTH 19.8 % (9.4-14.8)
[2020-02-06 13:07] LABS: BASOPHILS # (AUTO) 0.12 x10^3/uL (0-0.1); BASOPHILS % (AUTO) 1 % (0-1); EOSINOPHILS # (AUTO) 0.22 x10^3/uL (0-0.4); EOSINOPHILS % (AUTO) 1 % (1-7); LYMPHOCYTES # (AUTO) 1.67 x10^3/uL (1-3.4); LYMPHOCYTES % (AUTO) 11 % (22-44); MD SCAN; MONOCYTES # (AUTO) 0.92 x10^3/uL (0.2-0.8); MONOCYTES % (AUTO) 6 % (2-9); NEUTROPHILS # (AUTO) 12.89 x10^3/uL (1.8-6.8); NEUTROPHILS % (AUTO) 82 % (42-75)
[2020-02-06 13:11] VITALS: BP 106/66
[2020-02-06 18:40] VITALS: BP 105/57
[2020-02-06] MEDS: ENOXAPARIN 80 MG/0.8 ML SQ SCH (20:53)
[2020-02-07] MEDS: MEROPENEM 1 GM in SODIUM CHLORIDE 0.9% 100 ML IV SCH ×3 (00:18→16:44)
[2020-02-07 02:28] VITALS: BP 108/64
[2020-02-07 05:22] LABS: ANION GAP 7 mmol/L (5-15); CALCIUM 7.9 mg/dL (8.5-10.1); CHLORIDE 105 mmol/L (98-107)
[2020-02-07 05:23] LABS: CREATININE 0.66 mg/dL (0.7-1.3)
[2020-02-07] MEDS: HYDROmorphone PCA 30 MG/30 ML IV PRN (06:18)
[2020-02-07 06:29] LABS: BASOPHILS # (AUTO) 0.05 x10^3/uL (0-0.1); BASOPHILS % (AUTO) 0 % (0-1); EOSINOPHILS # (AUTO) 0.21 x10^3/uL (0-0.4); EOSINOPHILS % (AUTO) 2 % (1-7); LYMPHOCYTES # (AUTO) 1.86 x10^3/uL (1-3.4); LYMPHOCYTES % (AUTO) 14 % (22-44); MD NO; MEAN CORPUSCULAR HGB CONC 33.2 g/dL (33.2-36.2); MEAN CORPUSCULAR VOLUME 87.3 fL (81-97); MEAN PLATELET VOLUME 10.7 fL (7.4-10.4); MONOCYTES # (AUTO) 0.95 x10^3/uL (0.2-0.8); MONOCYTES % (AUTO) 7 % (2-9); NEUTROPHILS # (AUTO) 10.47 x10^3/uL (1.8-6.8); NEUTROPHILS % (AUTO) 77 % (42-75); PLATELET COUNT 113 x10^3/uL (130-400); RED CELL DISTRIBUTION WIDTH 19.6 % (9.4-14.8)
[2020-02-07] MEDS: PANTOPRAZOLE 40 MG IV IVPush SCH (08:08)
[2020-02-07] MEDS: ENOXAPARIN 80 MG/0.8 ML SQ SCH ×2 (08:08→21:19)
[2020-02-07 08:16] VITALS: BP 97/56
[2020-02-07] MEDS: HYDROmorphone 2MG TABLET PO SCH ×2 (12:42→16:44)
[2020-02-07 12:52] VITALS: BP 96/58
[2020-02-07] MEDS ORDERED: SODIUM CHLORIDE 0.9%, 500ML IVBOLUS ONE (17:30)
[2020-02-07 19:31] VITALS: BP 123/72
[2020-02-07] MEDS: HYDROmorphone 2 MG/ML, 1ML IVPush PRN (19:48)
[2020-02-08] MEDS: MEROPENEM 1 GM in SODIUM CHLORIDE 0.9% 100 ML IV SCH ×3 (00:21→16:54)
[2020-02-08] MEDS: HYDROmorphone 2MG TABLET PO SCH ×2 (02:57→08:34)
[2020-02-08 03:18] VITALS: BP 109/65
[2020-02-08 06:21] LABS: MEAN CORPUSCULAR HEMOGLOBIN 28.8 pg (27.5-34.5); MEAN CORPUSCULAR VOLUME 87.1 fL (81-97); MEAN PLATELET VOLUME 10.1 fL (7.4-10.4); PLATELET COUNT 118 x10^3/uL (130-400); RED BLOOD COUNT 2.75 x10^6/uL (4.38-5.82); RED CELL DISTRIBUTION WIDTH 18.6 % (9.4-14.8)
[2020-02-08 06:25] LABS: ALBUMIN 2.2 g/dL (3.4-5.0); ANION GAP 7 mmol/L (5-15); CALCIUM 8.2 mg/dL (8.5-10.1); CHLORIDE 106 mmol/L (98-107)
[2020-02-08 06:30] LABS: ALANINE AMINOTRANSFERASE 16 U/L (12-78); ALKALINE PHOSPHATASE 217 U/L (45-117); BILIRUBIN,TOTAL 0.8 mg/dL (0.2-1.0); CREATININE 0.56 mg/dL (0.7-1.3); TOTAL PROTEIN 5.5 g/dL (6.4-8.2)
[2020-02-08 07:21] LABS: BASOPHILS # (AUTO) 0.01 x10^3/uL (0-0.1); BASOPHILS % (AUTO) 0 % (0-1); EOSINOPHILS % (AUTO) 1 % (1-7); LYMPHOCYTES # (AUTO) 1.24 x10^3/uL (1-3.4); LYMPHOCYTES % (AUTO) 10 % (22-44); MD SCAN; MONOCYTES # (AUTO) 0.63 x10^3/uL (0.2-0.8); MONOCYTES % (AUTO) 5 % (2-9); NEUTROPHILS # (AUTO) 10.18 x10^3/uL (1.8-6.8); NEUTROPHILS % (AUTO) 84 % (42-75)
[2020-02-08 07:25] VITALS: BP 124/77
[2020-02-08] MEDS: PANTOPRAZOLE 40 MG IV IVPush SCH (07:49)
[2020-02-08] MEDS: ENOXAPARIN 80 MG/0.8 ML SQ SCH ×2 (08:35→20:28)
[2020-02-08] MEDS: HYDROmorphone 2 MG/ML, 1ML IVPush PRN (13:18)
[2020-02-08 13:52] VITALS: BP 91/48
[2020-02-08 16:59] VITALS: BP 99/60
[2020-02-08 20:16] VITALS: BP 109/63
[2020-02-08] MEDS: HYDROmorphone 2MG TABLET PO PRN (20:26)
[2020-02-09] MEDS: MEROPENEM 1 GM in SODIUM CHLORIDE 0.9% 100 ML IV SCH ×3 (01:20→17:43)
[2020-02-09] MEDS: HYDROmorphone 2MG TABLET PO PRN ×5 (01:21→21:46)
[2020-02-09 02:08] VITALS: BP 100/64
[2020-02-09 04:47] LABS: BASOPHILS # (AUTO) 0.03 x10^3/uL (0-0.1); BASOPHILS % (AUTO) 0 % (0-1); EOSINOPHILS # (AUTO) 0.11 x10^3/uL (0-0.4); EOSINOPHILS % (AUTO) 1 % (1-7); LYMPHOCYTES # (AUTO) 1.68 x10^3/uL (1-3.4); LYMPHOCYTES % (AUTO) 14 % (22-44); MD NO; MEAN CORPUSCULAR HEMOGLOBIN 28.2 pg (27.5-34.5); MEAN CORPUSCULAR HGB CONC 32.1 g/dL (33.2-36.2); MEAN PLATELET VOLUME 9.6 fL (7.4-10.4); MONOCYTES # (AUTO) 0.78 x10^3/uL (0.2-0.8); MONOCYTES % (AUTO) 7 % (2-9); NEUTROPHILS # (AUTO) 9.08 x10^3/uL (1.8-6.8); NEUTROPHILS % (AUTO) 78 % (42-75); PLATELET COUNT 137 x10^3/uL (130-400); RED CELL DISTRIBUTION WIDTH 18.1 % (9.4-14.8)
[2020-02-09 07:15] VITALS: BP 90/54
[2020-02-09] MEDS: HYDROmorphone 2 MG/ML, 1ML IVPush PRN (09:41)
[2020-02-09] MEDS: PANTOPRAZOLE 40 MG IV IVPush SCH (09:42)
[2020-02-09] MEDS: ENOXAPARIN 80 MG/0.8 ML SQ SCH ×2 (09:42→21:45)
[2020-02-09] MEDS: POLYETHYLENE GLYCOL 17 GM PACKET PO SCH (11:07)
[2020-02-09 14:01] VITALS: BP 102/67
[2020-02-09] MEDS: TAMSULOSIN 0.4 MG CAP.ER.24H PO SCH (16:54)
[2020-02-09 18:45] VITALS: BP 99/65
[2020-02-10 01:19] VITALS: BP 91/54
[2020-02-10] MEDS: HYDROmorphone 2MG TABLET PO PRN ×3 (02:46→23:05)
[2020-02-10 04:43] LABS: BASOPHILS # (AUTO) 0.05 x10^3/uL (0-0.1); BASOPHILS % (AUTO) 0 % (0-1); EOSINOPHILS # (AUTO) 0.15 x10^3/uL (0-0.4); EOSINOPHILS % (AUTO) 1 % (1-7); LYMPHOCYTES # (AUTO) 1.93 x10^3/uL (1-3.4); LYMPHOCYTES % (AUTO) 17 % (22-44); MD NO; MEAN CORPUSCULAR HEMOGLOBIN 28.4 pg (27.5-34.5); MEAN CORPUSCULAR HGB CONC 32.4 g/dL (33.2-36.2); MEAN CORPUSCULAR VOLUME 87.7 fL (81-97); MEAN PLATELET VOLUME 9.1 fL (7.4-10.4); MONOCYTES # (AUTO) 0.97 x10^3/uL (0.2-0.8); MONOCYTES % (AUTO) 9 % (2-9); NEUTROPHILS # (AUTO) 8.42 x10^3/uL (1.8-6.8); NEUTROPHILS % (AUTO) 73 % (42-75); PLATELET COUNT 128 x10^3/uL (130-400); RED CELL DISTRIBUTION WIDTH 18.1 % (9.4-14.8)
[2020-02-10] MEDS: PANTOPRAZOLE 40MG TABLET PO SCH (06:38)
[2020-02-10 06:43] VITALS: BP 94/55
[2020-02-10] MEDS: POLYETHYLENE GLYCOL 17 GM PACKET PO SCH (08:38)
[2020-02-10] MEDS: TAMSULOSIN 0.4 MG CAP.ER.24H PO SCH ×2 (08:38→21:01)
[2020-02-10] MEDS: ENOXAPARIN 80 MG/0.8 ML SQ SCH ×2 (08:38→21:04)
[2020-02-10] MEDS ORDERED: TAMSULOSIN 0.4 MG CAP.ER.24H PO SCH (13:00)
[2020-02-10 13:21] VITALS: BP 107/64
[2020-02-10] MEDS: MEROPENEM 1 GM in SODIUM CHLORIDE 0.9% 100 ML IV SCH ×2 (14:05→21:24)
[2020-02-10] MEDS: CLINDAMYCIN PMX 900MG/50ML 50 ML IV SCH ×2 (15:16→23:08)
[2020-02-10 18:46] VITALS: BP 100/63
[2020-02-10] MEDS: DOCUSATE 100 MG CAPSULE PO PRN (21:24)
[2020-02-11 01:17] VITALS: BP 94/60
[2020-02-11 04:41] LABS: MEAN CORPUSCULAR HEMOGLOBIN 28.1 pg (27.5-34.5); MEAN CORPUSCULAR HGB CONC 32.2 g/dL (33.2-36.2); MEAN CORPUSCULAR VOLUME 87.5 fL (81-97); MEAN PLATELET VOLUME 9.2 fL (7.4-10.4); PLATELET COUNT 116 x10^3/uL (130-400); RED BLOOD COUNT 2.99 x10^6/uL (4.38-5.82); RED CELL DISTRIBUTION WIDTH 17.9 % (9.4-14.8)
[2020-02-11 04:50] LABS: ANION GAP 8 mmol/L (5-15); CALCIUM 8.2 mg/dL (8.5-10.1); CHLORIDE 105 mmol/L (98-107)
[2020-02-11] MEDS: MEROPENEM 1 GM in SODIUM CHLORIDE 0.9% 100 ML IV SCH ×3 (05:23→21:09)
[2020-02-11] MEDS: PANTOPRAZOLE 40MG TABLET PO SCH (05:24)
[2020-02-11] MEDS: HYDROmorphone 2MG TABLET PO PRN (05:26)
[2020-02-11 05:41] LABS: BASOPHILS # (AUTO) 0.07 x10^3/uL (0-0.1); BASOPHILS % (AUTO) 1 % (0-1); EOSINOPHILS # (AUTO) 0.05 x10^3/uL (0-0.4); EOSINOPHILS % (AUTO) 1 % (1-7); LYMPHOCYTES # (AUTO) 1.13 x10^3/uL (1-3.4); LYMPHOCYTES % (AUTO) 12 % (22-44); MD SCAN; MONOCYTES # (AUTO) 0.63 x10^3/uL (0.2-0.8); MONOCYTES % (AUTO) 7 % (2-9); NEUTROPHILS # (AUTO) 7.76 x10^3/uL (1.8-6.8); NEUTROPHILS % (AUTO) 81 % (42-75)
[2020-02-11] MEDS: CLINDAMYCIN PMX 900MG/50ML 50 ML IV SCH ×3 (06:20→23:00)
[2020-02-11 08:21] VITALS: BP 112/69
[2020-02-11] MEDS: POLYETHYLENE GLYCOL 17 GM PACKET PO SCH (09:05)
[2020-02-11] MEDS: DOCUSATE 100 MG CAPSULE PO PRN ×2 (09:05→21:09)
[2020-02-11] MEDS: TAMSULOSIN 0.4 MG CAP.ER.24H PO SCH ×2 (09:05→21:09)
[2020-02-11] MEDS: ENOXAPARIN 80 MG/0.8 ML SQ SCH ×2 (09:06→21:11)
[2020-02-11 12:43] VITALS: BP 111/73
[2020-02-11 18:54] VITALS: BP 106/61
[2020-02-11] MEDS: OXYcodone IR 5MG TABLET PO PRN (19:12)
[2020-02-12 00:30] VITALS: BP 95/58
[2020-02-12] MEDS: MEROPENEM 1 GM in SODIUM CHLORIDE 0.9% 100 ML IV SCH ×3 (04:53→20:45)
[2020-02-12 05:44] LABS: BASOPHILS # (AUTO) 0.02 x10^3/uL (0-0.1); BASOPHILS % (AUTO) 0 % (0-1); EOSINOPHILS # (AUTO) 0.11 x10^3/uL (0-0.4); EOSINOPHILS % (AUTO) 1 % (1-7); LYMPHOCYTES # (AUTO) 1.63 x10^3/uL (1-3.4); LYMPHOCYTES % (AUTO) 21 % (22-44); MD NO; MEAN CORPUSCULAR HEMOGLOBIN 28.3 pg (27.5-34.5); MEAN CORPUSCULAR HGB CONC 32.2 g/dL (33.2-36.2); MONOCYTES # (AUTO) 0.68 x10^3/uL (0.2-0.8); MONOCYTES % (AUTO) 9 % (2-9); NEUTROPHILS % (AUTO) 69 % (42-75); PLATELET COUNT 115 x10^3/uL (130-400); RED BLOOD COUNT 2.78 x10^6/uL (4.38-5.82); RED CELL DISTRIBUTION WIDTH 18.8 % (9.4-14.8)
[2020-02-12 06:31] VITALS: BP 100/64
[2020-02-12] MEDS: PANTOPRAZOLE 40MG TABLET PO SCH (06:31)
[2020-02-12] MEDS: CLINDAMYCIN PMX 900MG/50ML 50 ML IV SCH ×3 (06:31→23:02)
[2020-02-12] MEDS: POLYETHYLENE GLYCOL 17 GM PACKET PO SCH (08:21)
[2020-02-12] MEDS: ENOXAPARIN 80 MG/0.8 ML SQ SCH ×2 (08:22→20:47)
[2020-02-12] MEDS: TAMSULOSIN 0.4 MG CAP.ER.24H PO SCH ×2 (08:22→20:45)
[2020-02-12] MEDS: DOCUSATE 100 MG CAPSULE PO PRN (08:22)
[2020-02-12] MEDS: OXYcodone IR 5MG TABLET PO PRN ×3 (08:22→23:02)
[2020-02-12 12:00] VITALS: BP 104/68
[2020-02-12 20:54] VITALS: BP 98/62
[2020-02-13 00:32] VITALS: BP 101/63
[2020-02-13] MEDS: MEROPENEM 1 GM in SODIUM CHLORIDE 0.9% 100 ML IV SCH ×3 (04:42→21:01)
[2020-02-13 06:07] LABS: BASOPHILS # (AUTO) 0.02 x10^3/uL (0-0.1); BASOPHILS % (AUTO) 0 % (0-1); EOSINOPHILS # (AUTO) 0.08 x10^3/uL (0-0.4); EOSINOPHILS % (AUTO) 1 % (1-7); LYMPHOCYTES # (AUTO) 1.62 x10^3/uL (1-3.4); LYMPHOCYTES % (AUTO) 21 % (22-44); MD NO; MEAN CORPUSCULAR HGB CONC 31.6 g/dL (33.2-36.2); MEAN CORPUSCULAR VOLUME 88.7 fL (81-97); MONOCYTES # (AUTO) 0.59 x10^3/uL (0.2-0.8); MONOCYTES % (AUTO) 8 % (2-9); NEUTROPHILS # (AUTO) 5.29 x10^3/uL (1.8-6.8); NEUTROPHILS % (AUTO) 70 % (42-75); PLATELET COUNT 101 x10^3/uL (130-400); RED BLOOD COUNT 2.84 x10^6/uL (4.38-5.82); RED CELL DISTRIBUTION WIDTH 18.8 % (9.4-14.8)
[2020-02-13] MEDS: PANTOPRAZOLE 40MG TABLET PO SCH (06:29)
[2020-02-13] MEDS: CLINDAMYCIN PMX 900MG/50ML 50 ML IV SCH ×3 (06:30→23:09)
[2020-02-13 07:29] VITALS: BP 99/62
[2020-02-13] MEDS: ENOXAPARIN 80 MG/0.8 ML SQ SCH ×2 (08:20→21:01)
[2020-02-13] MEDS: OXYcodone IR 5MG TABLET PO PRN (08:20)
[2020-02-13] MEDS: POLYETHYLENE GLYCOL 17 GM PACKET PO SCH (08:20)
[2020-02-13] MEDS: TAMSULOSIN 0.4 MG CAP.ER.24H PO SCH ×2 (08:20→21:01)
[2020-02-13] MEDS: HYDROmorphone 2MG TABLET PO PRN ×3 (12:43→21:43)
[2020-02-13 12:54] VITALS: BP 106/68
[2020-02-13 18:28] VITALS: BP 100/62
[2020-02-14] VITALS: BP_SYST 103; BP_SYST 115; BP_DIAS 63; BP_DIAS 66
[2020-02-14] MEDS: MEROPENEM 1 GM in SODIUM CHLORIDE 0.9% 100 ML IV SCH ×3 (05:06→21:09)
[2020-02-14] MEDS: HYDROmorphone 2MG TABLET PO PRN ×4 (05:06→23:23)
[2020-02-14] MEDS: PANTOPRAZOLE 40MG TABLET PO SCH (05:11)
[2020-02-14 06:46] VITALS: BP 112/71
[2020-02-14] MEDS: CLINDAMYCIN PMX 900MG/50ML 50 ML IV SCH ×3 (07:34→23:24)
[2020-02-14] MEDS: POLYETHYLENE GLYCOL 17 GM PACKET PO SCH (09:59)
[2020-02-14] MEDS: TAMSULOSIN 0.4 MG CAP.ER.24H PO SCH ×2 (10:00→21:11)
[2020-02-14] MEDS: ENOXAPARIN 100 MG/ML SQ SCH ×2 (10:01→21:09)
[2020-02-14 13:03] VITALS: BP 91/50
[2020-02-14 19:29] VITALS: BP 93/59
[2020-02-14] MEDS: DOCUSATE 100 MG CAPSULE PO PRN (21:10)
[2020-02-15 03:27] VITALS: BP 112/66
[2020-02-15] MEDS: MEROPENEM 1 GM in SODIUM CHLORIDE 0.9% 100 ML IV SCH ×2 (04:29→14:27)
[2020-02-15] MEDS: HYDROmorphone 2MG TABLET PO PRN ×3 (04:29→21:17)
[2020-02-15 05:16] LABS: HCT (SEDRATE) 26.1 % (39.2-51.8)
[2020-02-15 05:24] LABS: MEAN CORPUSCULAR HEMOGLOBIN 29.1 pg (27.5-34.5); MEAN CORPUSCULAR HGB CONC 32.9 g/dL (33.2-36.2); MEAN CORPUSCULAR VOLUME 88.3 fL (81-97); MEAN PLATELET VOLUME 9.9 fL (7.4-10.4); PLATELET COUNT 73 x10^3/uL (130-400); RED BLOOD COUNT 2.99 x10^6/uL (4.38-5.82); RED CELL DISTRIBUTION WIDTH 18.5 % (9.4-14.8)
[2020-02-15 05:26] LABS: CALCIUM 8.2 mg/dL (8.5-10.1); CHLORIDE 105 mmol/L (98-107)
[2020-02-15 05:49] LABS: ANION GAP 8 mmol/L (5-15); CREATININE 0.49 mg/dL (0.7-1.3)
[2020-02-15 06:04] LABS: ANISOCYTOSIS 1+; BASOPHILS % (AUTO) 0 % (0-1); EOSINOPHILS # (AUTO) 0.01 x10^3/uL (0-0.4); EOSINOPHILS % (AUTO) 0 % (1-7); LYMPHOCYTES # (AUTO) 1.08 x10^3/uL (1-3.4); LYMPHOCYTES % (AUTO) 13 % (22-44); MD MORPH REVIEW ONLY; MONOCYTES # (AUTO) 0.43 x10^3/uL (0.2-0.8); MONOCYTES % (AUTO) 5 % (2-9); NEUTROPHILS # (AUTO) 6.83 x10^3/uL (1.8-6.8); NEUTROPHILS % (AUTO) 82 % (42-75); TEAR DROPS 1+
[2020-02-15 06:05] LABS: POLYCHROMASIA 1+; SCHISTOCYTES 1+
[2020-02-15 06:06] LABS: <PLATELET ESTIMATE> DECREASED; <PLT MORPHOLOGY> NORMAL PLT MORPH
[2020-02-15] MEDS: CLINDAMYCIN PMX 900MG/50ML 50 ML IV SCH ×2 (06:08→16:18)
[2020-02-15] MEDS: PANTOPRAZOLE 40MG TABLET PO SCH (06:08)
[2020-02-15 08:43] VITALS: BP 102/63
[2020-02-15] MEDS: ENOXAPARIN 100 MG/ML SQ SCH (09:34)
[2020-02-15] MEDS: POLYETHYLENE GLYCOL 17 GM PACKET PO SCH (09:35)
[2020-02-15] MEDS: TAMSULOSIN 0.4 MG CAP.ER.24H PO SCH ×2 (09:36→21:17)
[2020-02-15 13:13] VITALS: BP 94/54
[2020-02-15 13:18] LABS: MEAN CORPUSCULAR HEMOGLOBIN 28.4 pg (27.5-34.5); MEAN CORPUSCULAR VOLUME 88.6 fL (81-97); RED BLOOD COUNT 3.17 x10^6/uL (4.38-5.82); RED CELL DISTRIBUTION WIDTH 18.6 % (9.4-14.8)
[2020-02-15 14:01] LABS: BASOPHILS # (AUTO) 0.05 x10^3/uL (0-0.1); BASOPHILS % (AUTO) 1 % (0-1); EOSINOPHILS # (AUTO) 0.04 x10^3/uL (0-0.4); EOSINOPHILS % (AUTO) 0 % (1-7); LYMPHOCYTES # (AUTO) 1.38 x10^3/uL (1-3.4); LYMPHOCYTES % (AUTO) 17 % (22-44); MD SCAN; MEAN PLATELET VOLUME 9.3 fL (7.4-10.4); MONOCYTES # (AUTO) 0.57 x10^3/uL (0.2-0.8); MONOCYTES % (AUTO) 7 % (2-9); NEUTROPHILS # (AUTO) 6.33 x10^3/uL (1.8-6.8); NEUTROPHILS % (AUTO) 76 % (42-75); PLATELET COUNT 78 x10^3/uL (130-400)
[2020-02-15] MEDS ORDERED: ENOX100S4 SQ (14:05)
[2020-02-15] MEDS ORDERED: HYDR2TAB40 PO ×2 (14:05→14:20)
[2020-02-15] MEDS ORDERED: MORP-30 PO (14:05)
[2020-02-15] MEDS ORDERED: ONDA4TAB7 PO (14:06)
[2020-02-15 19:26] VITALS: BP 97/56
[2020-02-15] MEDS: ENOXAPARIN 80 MG/0.8 ML SQ SCH (21:17)
[2020-02-16 02:29] VITALS: BP 93/58
[2020-02-16] MEDS: HYDROmorphone 2MG TABLET PO PRN ×2 (04:07→12:53)
[2020-02-16] MEDS: PANTOPRAZOLE 40MG TABLET PO SCH (06:15)
[2020-02-16 06:46] LABS: MEAN CORPUSCULAR HEMOGLOBIN 28.1 pg (27.5-34.5); MEAN CORPUSCULAR VOLUME 87.6 fL (81-97); MEAN PLATELET VOLUME 9.7 fL (7.4-10.4); PLATELET COUNT 82 x10^3/uL (130-400); RED BLOOD COUNT 3.12 x10^6/uL (4.38-5.82); RED CELL DISTRIBUTION WIDTH 18.7 % (9.4-14.8)
[2020-02-16 07:10] LABS: <PLATELET ESTIMATE> DECREASED; <PLT MORPHOLOGY> NORMAL PLT MORPH; ANISOCYTOSIS 1+; BASOPHILS # (AUTO) 0.06 x10^3/uL (0-0.1); BASOPHILS % (AUTO) 1 % (0-1); EOSINOPHILS # (AUTO) 0.09 x10^3/uL (0-0.4); EOSINOPHILS % (AUTO) 1 % (1-7); LYMPHOCYTES # (AUTO) 1.54 x10^3/uL (1-3.4); LYMPHOCYTES % (AUTO) 20 % (22-44); MD MORPH REVIEW ONLY; MONOCYTES # (AUTO) 0.58 x10^3/uL (0.2-0.8); MONOCYTES % (AUTO) 7 % (2-9); NEUTROPHILS # (AUTO) 5.63 x10^3/uL (1.8-6.8); NEUTROPHILS % (AUTO) 71 % (42-75); POLYCHROMASIA 1+; SCHISTOCYTES 1+
[2020-02-16 07:48] VITALS: BP 100/62
[2020-02-16] MEDS: POLYETHYLENE GLYCOL 17 GM PACKET PO SCH (09:00)
[2020-02-16] MEDS: TAMSULOSIN 0.4 MG CAP.ER.24H PO SCH (10:41)
[2020-02-16] MEDS: ENOXAPARIN 80 MG/0.8 ML SQ SCH (10:41)
[2020-02-16 14:29] VITALS: BP 107/69
== END 2020-02-16 16:45 | disposition home health service (06) | DRG 299 ==
LOC: ED 10:52 → EDIP 14:16 → 4WST 19:00 → CCU 22:05 → 4NW 02-06 11:51 → DCLOUNGE 02-16 16:26
PROVIDERS: ADMIT Hospitalist; ATTEND Family Medicine
PROC: B41F1ZZ Fluoroscopy of Right Lower Extremity Arteries using Low Osmolar Contrast (ICD-10-PCS; principal; 2020-02-04)
PROC: B4101ZZ Fluoroscopy of Abdominal Aorta using Low Osmolar Contrast (ICD-10-PCS; 2020-02-04)
PROC: B41C1ZZ Fluoroscopy of Pelvic Arteries using Low Osmolar Contrast (ICD-10-PCS; 2020-02-04)
PROC: 3E05317 Introduction of Other Thrombolytic into Peripheral Artery, Percutaneous Approach (ICD-10-PCS; 2020-02-04)
PROC: 04HK33Z Insertion of Infusion Device into Right Femoral Artery, Percutaneous Approach (ICD-10-PCS; 2020-02-04)
PROC: B41F1ZZ Fluoroscopy of Right Lower Extremity Arteries using Low Osmolar Contrast (ICD-10-PCS; 2020-02-05)
PROC: 04PYX3Z Removal of Infusion Device from Lower Artery, External Approach (ICD-10-PCS; 2020-02-05)
DX: I75.021 Atheroembolism of right lower extremity (principal); E43 Unspecified severe protein-calorie malnutrition; I26.99 Other pulmonary embolism without acute cor pulmonale; J18.1 Lobar pneumonia, unspecified organism; J96.01 Acute respiratory failure with hypoxia; K85.10 Biliary acute pancreatitis without necrosis or infection; I82.421 Acute embolism and thrombosis of right iliac vein; D68.59 Other primary thrombophilia; K31.1 Adult hypertrophic pyloric stenosis; K56.609 Unspecified intestinal obstruction, unspecified as to partial versus complete obstruction; L03.115 Cellulitis of right lower limb; L03.116 Cellulitis of left lower limb; D64.89 Other specified anemias; D69.6 Thrombocytopenia, unspecified; G89.3 Neoplasm related pain (acute) (chronic); I70.203 Unspecified atherosclerosis of native arteries of extremities, bilateral legs; I99.8 Other disorder of circulatory system; Z72.0 Tobacco use; Z85.07 Personal history of malignant neoplasm of pancreas; Z86.711 Personal history of pulmonary embolism; Z86.718 Personal history of other venous thrombosis and embolism; Z90.49 Acquired absence of other specified parts of digestive tract; Z88.0 Allergy status to penicillin; Z88.8 Allergy status to other drugs, medicaments and biological substances; Z91.018 Allergy to other foods
CPT/HCPCS: 36415; 37214; 96374; 96375; 96376; 99291; C8929; J3490; 70450; 71045; 75710; 80048; 80053; 80076; 81001; 82040; 83605; 83735; 84100; 85025; 85049; 85379; 85384; 85520; 85610; 85651; 85730; 86140; 87040; 87081; 93005; 93922; 93925; 99156; 99157; G0378; J0456; J0696; J1170; J1644; J1650; J2185; J2405; J2997; J3010; Q9957; C1751; C1769; C1894; C9113; J2270; J2310; J7040; J7050; J7120